=== PATIENT | male | born 1945 | race Caucasian/White ===

== ENCOUNTER 2016-11-24 09:16 | Observation (INO) | payer BC ==
[~2016-11-24] VITALS: Ht 185.4 cm; Wt 83.3 kg
[2016-11-24] VITALS (10 sets, daily range): BP systolic 103–124; BP diastolic 69–75; PULSE 56–72; TEMP 36.3–36.9; O2SAT 95–98; Ht 185.4 cm; Wt 83.3 kg
[~2016-11-24 09:16] MED LIST: ASPEC81; CEFAZOLIN 1000MG/55 ML D5W IV SCH; DRV100; IBUP600T44 PO
[2016-11-24] MEDS ORDERED: BUPIVACAINE 0.5 % 5 MG/1 ML MPF 30ML VIAL ONE (10:01)
[2016-11-24] MEDS ORDERED: BACITRACIN 50000 UNIT VIAL ONE (10:01)
[2016-11-24] MEDS ORDERED: LIDOCAINE HCL 1% 20 ML VIAL ONE (10:01)
[2016-11-24] MEDS ORDERED: OMEG10007 PO (10:03)
[2016-11-24] MEDS ORDERED: GLUC1TAB44 PO (10:03)
[2016-11-24] MEDS ORDERED: RANO500T PO (10:03)
[2016-11-24] MEDS ORDERED: NTRGSL/4 UT (10:03)
[2016-11-24] MEDS ORDERED: AMLO2.5T PO (10:03)
[2016-11-24] MEDS ORDERED: MULT-506 PO (10:03)
[2016-11-24] MEDS ORDERED: TADA10TA PO (10:03)
[2016-11-24] MEDS ORDERED: KEFZOL SPECIAL PROCEDURE STOCK 1 GM ADDVIAL IV ONE (10:06)
--- NOTE | 2016-11-24 10:13 | History & Physical Bridge Note ---
H&P Re-Evaluation Bridge Note: I have examined the patient, reviewed the History & Physical and in the interval since the performance of the History & Physical I have noted the following changes of clinical significance: No changes noted
--- NOTE | 2016-11-24 10:13 | Procedure Note ---
Pre-Mod Sedation Assessment General Date of Moderate Sedation: Nov 24, 2016. Vital Signs: Vital Signs Past 12 Hours Date Time Temp Pulse Resp B/P Pulse Ox O2 Delivery O2 Flow Rate FiO2 11/24/16 09:56 36.6 65 16 123/73 98 Room Air Review Cardiovascular: + bradycardia Abdomen: soft Lungs: lungs clear Airway Class: II Pre-Sedation Airway Assessment Oral Cavity: Dentures Short Thick Neck: No Hx of Sleep Apnea: No Smoking Status: Former Smoker Mallampati Classification: Class II ASA Classification: Class II Procedure Planning Contraindications-for Mod Sed: None Yes Notes The planned sedation has been discussed with the patient and consent obtained. I have identified the patient, determined the appropriateness of sedation and have assessed the patient immediately prior to the procedure. All medicine(s) and interventions are by my order.
[2016-11-24] MEDS ORDERED: MIDAZOLAM HCL 5 MG/ML 1 ML VIAL ONE (10:39)
[2016-11-24] MEDS ORDERED: FENTANYL CITRATE INJ 50 MCG/1 ML 2 ML VIAL ONE (10:40)
--- NOTE | 2016-11-24 12:03 | Procedure Note ---
Post-Mod Sedation Assessment General Date of Moderate Sedation Nov 24, 2016. Vital Signs: Vital Signs Past 12 Hours Date Time Temp Pulse Resp B/P Pulse Ox O2 Delivery O2 Flow Rate FiO2 11/24/16 11:50 59 18 123/84 100 Nasal Cannula 3 11/24/16 09:56 36.6 65 16 123/73 98 Room Air Review - Discharge Criteria Vital Signs Stable: Yes Alert/Oriented/Conversant: Yes Returned to Baseline Mental St: Yes Nausea Absent/Minimal: Yes Pain/Discomfort/Absent/Minimal: Yes Normal/Baseline Respirations: Yes Active Bleeding?: No Pt Received D/C Instructions: N/A Prescriptions Given: None Specific Proced. D/C Criteria Distal Pulses Present (Cardiac: N/A Groin site assessed-Card Cath: N/A Voided Prior To Discharge: N/A Discharged Patients Adult Escort/Transportation: N/A
--- NOTE | 2016-11-24 12:04 | [facility] Post Operative Brief Note ---
Immediate Operative Summary Operative Date Nov 24, 2016. Pre-Operative Diagnosis snd Post-Operative Diagnosis same Procedure(s) Performed dual chamber rate responsive ppm with peripheral venogram Surgeon haylie arellano Truck Jumper Surgeon(s) none Estimated Blood Loss <10cc Findings none Fluids (cc crystalloids) 200cc Specimens none Drains none Anesthesia 5mg versed and 100mcg fentanyl Complication(s) None Disposition PCU
--- NOTE | 2016-11-24 12:09 | Discharge Instructions ---
Discharge Instructions Admission Reason for Admission: Sinus Node Dysfunction Discharge Discharge Diagnosis / Problem: sinus node dysfunction Discharge Goals Goal(s): Improve function Activity Recommendations Activity Limitations: as noted below (do not lift your left elbow over your left chest for 1 week; do not play racketball for at least 2 weeks) Lifting Limitations: no more than 10 pounds (with the left arm for 2 weeks) Shower/Bathe: tomorrow Driving or Machine Use: resume 1 day after discharge . Current Hospital Diet Patient's current hospital diet: AHA Diet (Heart Healthy) Discharge Diet Recommended Diet: AHA Diet (Heart Healthy) Procedures Procedures Performed: dual chamber rate responsive ppm with peripheral venogram Pending Studies Studies pending at discharge: no Medical Emergencies . Who to Call and When: Medical Emergencies: If at any time you feel your situation is an emergency, please call 911 immediately. . Non-Emergent Contact Non-Emergency issues call your: Sample Hand . . "Provider Documentation" section prepared by Nell Brian. VTE Core Measure Inpt VTE Proph given/why not?: Treatment not indicated
--- NOTE | 2016-11-24 12:13 | Discharge Summary ---
Discharge Summary Admission Date: 11/24/2016 Discharge Date: Nov 25, 2016 Discharge Disposition: Home Principal Diagnosis: 1. 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 Mobitz Type I pAF s/p PVI 02/2008 CAD s/p CABGx4 05/2006 Statin intolerance Vasovagal Syncope Procedures: dual chamber rate responsive permanent pacemaker with peripheral venogram Medication Reconciliation Continued Medications: Amlodipine (Norvasc) 2.5 Mg Tab 2.5 MG PO DAILY, TAB Aspirin Enteric Coated (Ecotrin Or Generic *) 81 Mg Ectab Fish Oil ([place]-3) 1 Ea Cap 1 CAP PO BID, CAP Xjsphjhwnwn-Waqesfdleee-Vnisug (Glucosamine Chondroitin J) 1 Tab Tab 1 TAB PO BID Ibuprofen (Motrin) 600 Mg Tab 800 MG PO PRN PRN for Pain Multivitamin (Multivitamin) Tab 1 TAB PO DAILY, TAB Nitroglycerin (Nitrostat) 0.4 Mg Tab 0.4 MG UT PRN, BTL Ranolazine (Ranexa) 500 Mg Tab 1 TAB PO BID for 30 Days, #60 TAB 3 Refills Tadalafil (Cialis) 10 Mg Tab 20 MG PO UD, TAB Admission Information Physical Exam (per Admitting): aaox3, NAD No JVD, suppler Bradycardia, Nrl S1/S2, no murmur CTA b/l no w/r/r soft nt/nd no edema b/l no focal deficits Hospital Course Pt admitted for elective permanent pacemaker due to sinus node dysfunction. Pt underwent procedure without any complications and monitored overnight. Discharged home the following day. Total time spent on discharge = This includes examination of the patient, discharge planning, medication reconciliation, and communication with other providers. Discharge Instructions ACTIVITY RECOMMENDATIONS: * Do not raise affected arm over head for 4 weeks. SPECIAL CARE INSTRUCTIONS: * If bleeding occurs, apply direct pressure to area for 5 minutes. * Call your doctor if you have severe pain, fever, drainage or bleeding at site. * Keep dry for 48 hours * Keep any scheduled doctor's appointment. * Implant Card - hand held device with website information given. SKIN IRRITATION: * You may experience some redness and/or swelling in the area where radiation was administered. If any skin irritation occurs, please contact your family physician. FOLLOW UP VISIT: Keep any scheduled doctor appointments.
[2016-11-24] MEDS ORDERED: NITROGLYCERIN 0.4 MG SL PER TAB CHARGE UT PRN (12:15)
[2016-11-24] MEDS ORDERED: NON-FORMULARY MEDICATION (Tadalafil (Cialis) 20 MG) PO SCH (12:15)
[2016-11-24] MEDS ORDERED: OXYCODONE/ACETAMINOPHEN 5-325 TAB PO PRN (12:15)
--- NOTE | 2016-11-24 13:40 | OPERATIVE REPORT ---
DATE OF OPERATION: 11/24/2016 PREOPERATIVE DIAGNOSIS: Sinus node dysfunction. POSTOPERATIVE DIAGNOSIS: Same. PROCEDURE: Dual chamber rate responsive permanent pacemaker under fluoroscopic guidance with a peripheral venogram. SURGEON: Dr. Nell Brian. FREELANCE COURT STENOGRAPHER: None. ANESTHESIA: Monitored conscious sedation, a total of 5 mg of Versed, 100 mcg of Fentanyl, start time 10:56, end time 11:50. COMPLICATIONS: None. CONDITION: Stable. URINE OUTPUT: Not applicable. SPECIMENS: None. BLOOD LOSS: Less than 10 mL. FINDINGS: None. IV FLUIDS: 200 mL. IV CONTRAST: 10 mL. HISTORY OF PRESENT ILLNESS: This is a 71-year-old gentleman who has a past medical history of sinus node dysfunction, transient complete heart block, second-degree AV block, Mobitz type 1, paroxysmal atrial fibrillation status post PVI ablation in February of 2008, no longer on Coumadin, coronary artery disease, status post CABG x4 in May 2006, statin intolerance, vasovagal syncope. Due to his sinus node dysfunction and becoming more symptomatic he was recommended a pacemaker. CONSENT: Consent was obtained prior to the patient going into the electrophysiology lab. The patient was informed the risks, benefits, alternatives to the procedure. Risks include but not limited to sudden cardiac , cardiac arrhythmias, cerebrovascular accident, myocardial infarction, injury to the blood vessels, chamber of the heart and lungs, bleeding and infection. The patient understood these risks and agreed to the procedure as planned. Informed consent was obtained. DESCRIPTION OF THE PROCEDURE: The patient was brought into the electrophysiology lab in a fasting state. He was connected to continuous cardiac monitoring. A timeout was performed to ensure patient's identity and procedure correctly. The patient was prepped and draped over the left infraclavicular space in normal surgical standard fashion. The patient received prophylactic antibiotics prior to incision. Monitored conscious sedation was given throughout the procedure for patient's comfort level. [place] precautions were maintained throughout the procedure. Lidocaine 1% 20 mL, bupivacaine mixture in the left deltopectoral groove. Incision was made in left deltopectoral groove. Blunt dissection was performed down to identify the cephalic vein; however, none could be nicely identified so we went to a peripheral venogram. We gave 10 mL of IV contrast diluted in 10 mL of saline followed by 20 mL flush. Axillary vein was identified. There was a cephalic vein too but however I could not really find it, so I opted to stick the axillary vein. Axillary venous access was obtained. A guidewire was inserted without any resistance. An 8-Jamaican sheath was inserted over the guidewire without any resistance. The dilator was removed and a second guidewire was inserted through the 8-Jamaican sheath to allow for retained venous access. The 8-Jamaican sheath was removed, flushed and dilator reinserted over it and then the 8-Jamaican sheath was reinserted over one of the guidewires without any resistance. The guidewire and dilator were removed. Right ventricular lead was advanced into the right ventricle and positioned into the right ventricular apex under fluoroscopic guidance. There was adequate pacing and sensing thresholds and no diaphragmatic stimulation with high output pacing. The 8-Jamaican sheath was peeled away and lead was fixated to pectoralis muscle using 0 silk suture. A second 8-Jamaican sheath was advanced over the retained guidewire without any resistance. The guidewire and dilator were removed. The right atrial lead was advanced into the right atrium and positioned into right atrial appendage under fluoroscopic guidance. There was adequate pacing and sensing thresholds and no diaphragmatic stimulation with high output pacing. The 8-Jamaican sheath was peeled away and lead was fixated to the pectoralis muscle using 0 silk suture. Using blunt dissection over the pectoralis muscle within the fascia. A pacemaker generator pocket was created. The pocket was flushed with copious amounts of bacitracin saline wash and inspected for hemostasis. The pulse generator was then attached to the leads making sure that the pins were in appropriate position, passed the set screws and the set screws were all tightened. The pulse generator was then placed in the pocket making sure that the leads were lying flat beneath the device. A stay stitch using 0 silk suture was used to secure the device to the pectoralis muscle. The incision was closed in a 3-layer fashion using a 2-0 Vicryl interrupted suture followed by a 3-0 Vicryl suture followed by a 4-0 Monocryl running stitch and Dermabond was applied. EQUIPMENT: 1. Pulse generator is a MedAltatecha MRI SureScan A2DR01, serial #[id number]. 2. Right atrial lead Medtronic 5076-52 cm, serial #[id number]. 3. Right ventricular lead, Medtronic 5076-58 cm, serial #[id number]. INTRAOPERATIVE TESTIN. P-wave sensing 1.9 millivolts, impedance 588 ohms, threshold 0.6 volts at 1 milliamp. 2. Right ventricular lead: R-wave sensing 5.2 millivolt, impedance 884 ohms, threshold 0.4 volts at 0.4 milliamps. FINAL MEASUREMENTS THROUGH THE DEVICE: 1. Right atrial lead: P-wave 2.5 millivolts, impedance 456 ohms, threshold 0.5 volts at 0.4 milliseconds. 2. Right ventricular lead: R-wave 10.1 millivolts, impedance 589 ohms, threshold 0.5 volts at 0.4 milliseconds. FINAL PARAMETERS: MVP-R 60/140. Right atrial amplitude 3.5 volts, pulse width 0.4 milliseconds, sensitivity 0.3 millivolts. Right ventricular amplitude 3.5 volts, pulse width 0.4 milliseconds, sensitivity 0.9 millivolts. IMPRESSION: Successful implantation of a dual chamber rate responsive permanent pacemaker under fluoroscopic guidance along with peripheral venogram secondary to sinus node dysfunction. PLAN: Monitor patient overnight, 12-lead ECG, chest x-ray. He is not allowed to lift his left elbow over left shoulder for 1 month, no lifting more than 10 pounds with the left arm for 2 weeks. He should not play racquetball for 3 week and he can shower in 2 days. He should follow up in our [facility] device clinic in 7-10 days for device and wound check. I attest to the content of the Intraoperative Record and any orders documented therein. Any exceptio ns are noted below.
[2016-11-24] MEDS ORDERED: IV FLUIDS COMPLETED PRN (14:15)
[2016-11-24] MEDS: RANOLAZINE 500 MG ER TAB PO SCH (20:49)
[2016-11-24] MEDS: ACETAMINOPHEN 325 MG TAB PO PRN (20:49)
[2016-11-24] MEDS ORDERED: [UNRECOGNIZED DRUG - OTHER] PO SCH (21:00)
[2016-11-24] MEDS ORDERED: PNEUMOCOCCAL ADMINISTRATION CHARGE ONE (21:00)
[2016-11-24] MEDS ORDERED: PNEUMOCOCCAL POLYSACCHARIDES 25 MCG/0.5 ML VIAL/SYR IM. ONE (21:00)
[2016-11-25] VITALS (7 sets, daily range): BP systolic 114–125; BP diastolic 69–76; PULSE 59–68; TEMP 36.5–37.1; O2SAT 94–95
[2016-11-25] MEDS: ACETAMINOPHEN 325 MG TAB PO PRN (04:34)
--- NOTE | 2016-11-25 07:21 | DIAGNOSTIC IMAGING REPORT ---
CHEST 2 VIEWS ROUTINE CLINICAL HISTORY: Pacemaker insertion COMPARISON STUDY: Chest radiograph and chest CT June 15, 2006 FINDINGS: There has been placement of a dual lead left subclavian pacemaker. Lead tip projects over the right atrial appendage and right ventricle. There are median sternotomy wires and clips from bypass grafting. There is no evidence of pulmonary edema. Mild cardiomegaly is present. No pneumothorax or pleural effusion is present. IMPRESSION: No pneumothorax following placement of a dual lead left subclavian pacemaker. Electronically signed by: Bhavin Roe M.D. 11/25/2016 7:20 AM Dictated Date/Time: 11/25/2016 7:19 AM
[2016-11-25] MEDS: RANOLAZINE 500 MG ER TAB PO SCH (08:22)
--- NOTE | 2016-11-25 08:36 | Cardiology Follow-Up ---
Subjective Subjective Date of Service: Nov 25, 2016. Pt evaluation today including: conversation w/ patient, physical exam, chart review, lab review, review of studies Pain: minimal discomfort at incision site Review of Systems Constitutional: No fatigue, No fever, No weakness Respiratory: No shortness of breath, No wheezing Cardiac: No chest pain, No edema, No palpitations Abdomen: No diarrhea, No nausea, No vomiting Endo: No fatigue Objective Vital Signs Last Vital Signs Documentation Date Time Temp Pulse Resp B/P Pulse Ox O2 Delivery O2 Flow Rate FiO2 11/25/16 07:45 36.8 67 18 114/69 95 Room Air 11/24/16 11:50 3 Physical Exam: General Appearance: WD/WN, no apparent distress Eyes: bilateral eyes EOMI, bilateral eyes PERRL Neck: supple, no JVD Respiratory/Chest: lungs clear, normal breath sounds Cardiovascular: regular rate, rhythm, no edema, no JVD, + systolic murmur Abdomen: soft Extremities: no pedal edema Neurologic/Psychiatric: alert, oriented x 3 Skin: normal color (left pectoral incision intact, no hematoma, mild ecchymosis ), warm/dry Assessment and Plan Impression: 1. SND 2. Transient CHB 3. 2nd degree AV block Mobitz Type I 4. pAF s/p PVI 02/2008 5. CAD s/p CABGx4 05/2006 6. Statin intolerance 7. Vasovagal Syncope Plan: -Ok for discharge today -Continue home medications -Pt not allowed to lift the left elbow over the left shoulder for 1 month or lift more than 10 pounds with left arm for 2 weeks; or play racquetball for 3 weeks -can shower tomorrow -f/u in our [facility] device clinic in 7-10 days Discharge planning: home Medications: Medications Administered Medications (Trade) Dose Ordered Sig/Lissette Route Start Time Stop Time Status Last Admin Dose Admin Cefazolin Sodium (Kefzol Iv) 2 gm STK-MED ONCE IV 11/24/16 10:06 11/24/16 10:07 DC 11/24/16 10:06 2 GM Midazolam HCl (Versed Inj) 5 mg STK-MED ONCE .ROUTE 11/24/16 10:39 11/24/16 10:41 DC 11/24/16 10:39 5 MG Fentanyl Citrate (Fentanyl Inj) 100 mcg STK-MED ONCE .ROUTE 11/24/16 10:40 11/24/16 10:41 DC 11/24/16 10:40 100 MCG Acetaminophen (Tylenol Tab) 650 mg Q4H PRN PO 11/24/16 12:15 12/24/16 12:14 11/25/16 04:34 650 MG Amlodipine Besylate (Norvasc Tab) 2.5 mg DAILY PO 11/25/16 09:00 12/25/16 08:59 11/25/16 08:22 2.5 MG Aspirin (Ecotrin Tab) 81 mg DAILY PO 11/25/16 09:00 12/25/16 08:59 11/25/16 08:21 81 MG Multivitamins (Multivitamin Tab) 1 tab DAILY PO 11/25/16 09:00 12/25/16 08:59 11/25/16 08:21 1 TAB Ranolazine (Ranexa ER Tab) 500 mg BID PO 11/24/16 21:00 12/24/16 20:59 11/25/16 08:22 500 MG Lab Results: Telemetry: occasional AP otherwise SR and RBBB ECG: AP with RBBB CXR: No PTX leads in position Pacemaker Interrogation Today: Stable lead testing and wnl since implant
[2016-11-25] MEDS ORDERED: ASPIRIN 81 MG ECTAB PO SCH (09:00)
[2016-11-25] MEDS ORDERED: AMLODIPINE BESYLATE 5 MG TAB PO SCH (09:00)
[2016-11-25] MEDS ORDERED: MULTIVITAMIN TAB PO SCH (09:00)
== END 2016-11-25 09:25 | disposition home or self-care (01) ==
LOC: C.CATH 09:16 → C.2E 12:07
PROVIDERS: ADMIT Internal Medicine; ATTEND Internal Medicine
DX: I49.5 Sick sinus syndrome (principal); I44.2 Atrioventricular block, complete; I25.10 Atherosclerotic heart disease of native coronary artery without angina pectoris; N18.3 Chronic kidney disease, stage 3 (moderate); N40.1 Benign prostatic hyperplasia with lower urinary tract symptoms; N13.8 Other obstructive and reflux uropathy; Z95.1 Presence of aortocoronary bypass graft

== ENCOUNTER 2021-01-05 09:40 | Inpatient (IN) ==
[2021-01-05] MEDS ORDERED: CEFEPIME 2,000 MG in SYRINGE 0 ML IV STA (10:03)
[2021-01-05] MEDS ORDERED: SODIUM CHLORIDE 0.9% 1000ML 2,000 ML IV ONE (10:04)
--- NOTE | 2021-01-05 10:07 | Emergency Department Note ---
Impression & Plan Complicated UTI (urinary tract infection), Leukopenia, Acidosis, lactic, Sepsis ED Provider Note NAME: TAMIKO PABON AGE: 75 SEX: M : 1945 ARRIVES VIA: Walk-In INFORMANT: Patient ED PROVIDER(S): Maciej Lin DO CHIEF COMPLAINT: Shaking chills HPI: Patient is a 75-year-old male who recently underwent a prostate biopsy performed in [place] on Tuesday. He was placed on 4 days worth of antibiotics and believes it was Cipro. Burning with urination and frequency started about 3 days ago. This morning he woke up and has had uncontrollable body shakes. He denies any headache or change in vision. No chest pain or shortness of breath. Denies any recent trauma. Denies any cough or runny nose. No loss of taste or smell. No other exacerbating or remitting factors. Pain in his lower pelvis is a 6 out of 10 and constant. ROS: See above HPI for pertinent positives & negatives. A total of 10 systems reviewed and were otherwise negative. PAST MEDICAL HISTORY:See Below PAST SURGICAL HISTORY:See Below FAMILY HISTORY:See Below SOCIAL HISTORY:See Below HOME MEDICATIONS:See Below ALLERGIES:See Below VITALS:See Below PHYSICAL EXAMINATION: GENERAL: Sitting up in bed, alert, ill-appearing with uncontrollable shaking of his upper and lower body EYE EXAM: normal conjunctiva. PERRL and EOM's grossly intact. OROPHARYNX: no exudate, no erythema, lips, buccal mucosa, and tongue normal and mucous membranes are moist NECK: supple, no nuchal rigidity, no adenopathy, non-tender LUNGS: Clear to auscultation. Normal chest wall mechanics HEART: Tachycardic, S1 normal and S2 normal ABDOMEN: abdomen soft, non-tender, normo-active bowel sounds, no masses, no rebound or guarding. BACK: Back is symmetrical on inspection and there is no deformity, no midline tenderness, no CVA tenderness. SKIN: no rashes and no bruising UPPER EXTREMITIES: upper extremities are grossly normal. LOWER EXTREMITIES: No pitting edema. NEURO EXAM: Normal sensorium, cranial nerves II-XII grossly intact, normal speech, no gross weakness of arms, no gross weakness of legs. MEDICAL DECISION MAKING: Patient is a 75-year-old male status post prostate biopsy who presents the ER for 3 days worth of dysuria and now having shaking chills. Took Motrin prior to arrival. Tachycardic upon arrival. Labs show mild leukopenia at 4000. No significant anemia. INR unremarkable. BMP with slightly elevated glucose at 149. Lactate was elevated at 3.6. LFTs bilirubin troponin was unremarkable. UA does suggest UTI. Covid was negative. Patient was given 2 g IV cefepime IV fluids and CT abdomen pelvis was updated. Discussed with hospitalist for further evaluation patient was admitted for further work-up. Triage Nursing notes reviewed. Limited review of prior medical records performed Vital Signs: reviewed and remarkable for HTN and tachy Differential diagnosis: Differential diagnosis includes etiologies such as sepsis, UTI, pneumonia, metabolic, electrolyte abnormalities, cardiac sources, intracerebral event, toxicologic, neurological, as well as others were entertained. ER treatment provided: See below Diagnostics interpreted by me: Cardiac Monitoring: An order was placed for continuous cardiac monitoring. The monitor shows a rate of 88 with sinus rhythm. Laboratory studies: As stated above and show below. 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 SANTAMARIA Surgical History H/O cardiac radiofrequency ablation 2008 History of appendectomy History of cardiac cath 2006 History of colonoscopy History of coronary artery bypass graft Dr Sumner, Off pump coronary artery bypass grafting x4 using INFANTE to LAD, reverse saphenous vein graft to diagonal, and sequential reverse saphenous vein graft to ramus intermedius and obtuse marginal; endoscopic vein harvesting 4 VESSELS AT [employer] [facility] [place] 2006 History of herniorrhaphy X 3 REPAIRS (INGUINAL AREAS) History of tonsillectomy History of tooth extraction Hx of vasectomy S/P LASIK surgery of both eyes Family History Father , 77 Myocardial infarction Coronary heart disease Stroke Mother Myocardial infarction Coronary heart disease Social History (Updated 01/05/21 @ 14:26 by Lolis Reyes PA-C) Smoking Status: Former smoker Tobacco Type: Cigarettes packs per day: 1; Years Smoked: 10; Smoking End Date: 1967; Second Hand Exposure: No; Do You Dip or Chew Tobacco: No; Tobacco Cessation Education Requested by Patient: No Hx Alcohol Use: No Hx Substance Use: No Preferred Language: Singaporean Communication Ability: Effective Mine Captain Required: No Beliefs That Will Affect Care: None Current Living Situation: Family current occupational status: employed 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 Other Information That Helps Us Care for You: No Feels Safe at Home: Yes Safety Concerns: Feels Safe At This Time Assistive Devices: Denture - Upper, Denture - Lower and Glasses Allergies Allergies Allergy/AdvReac Type Severity Reaction Status Date / Time Wotvvsz-Mun-Egg Reductase AdvReac Intermediate MUSCLE Verified 01/05/21 11:29 Inhibitor ACHES Home Meds Home Medications Medication Instructions Recorded Confirmed Glucosamine Chondroitin 1 cap PO BID 10/30/19 01/05/21 Multivitamin 50 Plus 1 tab PO QAM 10/30/19 01/05/21 metoprolol succinate 75 mg PO QAM 10/30/19 01/05/21 ranolazine [Ranexa] 500 mg PO BID 10/30/19 01/05/21 Prostagenix 3 tab PO DAILY 01/05/21 01/05/21 aspirin 81 mg PO DAILY 01/05/21 01/05/21 ibuprofen 200 mg PO Q6H PRN 01/05/21 01/05/21 Results & Data (ED) Vital Signs Vital Signs - 24 hr 01/05/21 09:50 01/05/21 10:03 01/05/21 10:46 Temperature 36.9 C Temperature Source Temporal Artery Scan Pulse Rate 100 H Respiratory Rate 18 Respiratory Effort / Characteristics Non-Labored Spontaneous Non-Labored Respiratory Depth Normal Blood Pressure 148/83 H Blood Pressure Mean 104 Blood Pressure Position Sitting Pulse Oximetry 96 Oxygen Delivery Method Room Air Room Air Sepsis Recent Fever Within 48 Hours Yes Sepsis New/Unexplained Change in Mental Status No Sepsis Action Taken by Nursing No Action Required 01/05/21 10:54 01/05/21 11:00 01/05/21 11:30 Temperature Temperature Source Pulse Rate 93 H 92 H 88 Respiratory Rate Respiratory Effort / Characteristics Respiratory Depth Blood Pressure Blood Pressure Mean Blood Pressure Position Pulse Oximetry Oxygen Delivery Method Sepsis Recent Fever Within 48 Hours Sepsis New/Unexplained Change in Mental Status Sepsis Action Taken by Nursing 01/05/21 11:51 01/05/21 12:12 01/05/21 12:30 Temperature Temperature Source Pulse Rate 89 90 91 H Respiratory Rate 20 Respiratory Effort / Characteristics Respiratory Depth Blood Pressure 103/53 L 108/66 Blood Pressure Mean 69 80 Blood Pressure Position Pulse Oximetry Oxygen Delivery Method Sepsis Recent Fever Within 48 Hours Sepsis New/Unexplained Change in Mental Status Sepsis Action Taken by Nursing Laboratory Data Result diagrams: 01/05/21 10:40 01/05/21 10:40 Lab Results 01/05/21 01/05/21 01/05/21 Range/Units 10:40 10:40 10:40 WBC 4.04 L (4.8-10.8) K/uL RBC 4.26 L (4.7-6.1) M/uL Hgb 13.7 L (14.0-18.0) g/dL POC Hgb (14.0-18.0) g/dl Hct 39.0 L (42-52) % POC Hct (42-52) % MCV 91.5 (80-100) fL MCH 32.2 (25-34) pg MCHC 35.1 (32-36) g/dL RDW Std Deviation 44.1 (36.4-46.3) fL RDW Coeff of Valentín 13.2 (11.5-14.5) % Plt Count 176 (130-400) K/uL MPV 9.0 (7.4-10.4) fL Immature Gran % (Auto) 0.7 % Neut % (Auto) 88.3 % Lymph % (Auto) 9.9 % Williams % (Auto) 0.7 % Eos % (Auto) 0.2 % Baso % (Auto) 0.2 % Neut # (Auto) 3.56 (1.4-6.5) K/uL Lymph # (Auto) 0.40 L (1.2-3.4) K/uL Williams # (Auto) 0.03 L (0.11-0.59) K/uL Eos # (Auto) 0.01 (0-0.5) K/uL Baso # (Auto) 0.01 (0-0.2) K/uL Immature Gran # (Auto) 0.03 H (0.00-0.02) K/uL PT 10.4 (9.0-12.0) Seconds INR 1.0 (0.9-1.1) APTT 23.3 (21.0-31.0) Seconds PTT Ratio 0.9 POC Sodium (135-144) mmol/L Sodium 137 (136-145) mmol/L POC Potassium (3.3-5.0) mmol/L Potassium 3.9 (3.5-5.1) mmol/L POC Chloride (101-112) mmol/L Chloride 105 (98-107) mmol/L Carbon Dioxide 23 (21-32) mmol/L POC Total CO2 (24-31) mmol/L Anion Gap 9.0 (3-11) POC Anion Gap (16-25) mmol/L POC BUN (7-18) mg/dl BUN 16 (7-18) mg/dl Creatinine 1.33 (0.6-1.4) mg/dl POC Creatinine (0.6-1.3) mg/dl Est Cr Clr Drug Dosing 54.3 ml/min Est GFR ( Amer) 61.0 Est GFR (Non-Af Amer) 52.7 BUN/Creatinine Ratio 11.8 (10-20) Glucose 149 H (70-99) mg/dl POC Glucose (other) (70-99) mg/dl Lactate (0.4-2.0) mmol/L Calcium 8.6 (8.5-10.1) mg/dl POC Ioniz Calcium Jarod (1.12-1.32) mmol/l Magnesium 1.7 L (1.8-2.4) mg/dl Total Bilirubin 0.7 (0.2-1) mg/dl AST 23 (15-37) U/L ALT 23 (12-78) U/L Alkaline Phosphatase 83 (45-117) U/L Troponin I < 0.015 (0-0.045) ng/ml Total Protein 7.9 (6.4-8.2) gm/dl Albumin 3.5 (3.4-5.0) gm/dl Globulin 4.4 H (2.5-4.0) gm/dl Albumin/Globulin Ratio 0.8 L (0.9-2) Procalcitonin (0-0.5) ng/ml Urine Color Urine Appearance (Clear) Urine pH (4.5-7.5) Ur Specific [place] (1.000-1.030) Urine Protein (Negative) Urine Glucose (UA) (Negative) Urine Ketones (Negative) Urine Blood (Negative) Urine Nitrite (Negative) Urine Bilirubin (Negative) Urine Urobilinogen (Negative) Ur Leukocyte Esterase (Negative) Urine WBC (Auto) (0-5) /hpf Urine RBC (Auto) (0-4) /hpf U Hyaline Cast (Auto) (0-5) /lpf U Epithel Cells (Auto) (0-5) /lpf Urine Bacteria (Auto) (Negative) COVID-19 Eval Order SARS-CoV-2 (PCR) (Negative) Influenza Type A (PCR) (Neg) Influenza Type B (PCR) (Neg) RSV (RT-PCR) (Neg) 01/05/21 01/05/21 01/05/21 Range/Units 10:40 10:40 11:06 WBC (4.8-10.8) K/uL RBC (4.7-6.1) M/uL Hgb (14.0-18.0) g/dL POC Hgb (14.0-18.0) g/dl Hct (42-52) % POC Hct (42-52) % MCV (80-100) fL MCH (25-34) pg MCHC (32-36) g/dL RDW Std Deviation (36.4-46.3) fL RDW Coeff of Valentín (11.5-14.5) % Plt Count (130-400) K/uL MPV (7.4-10.4) fL Immature Gran % (Auto) % Neut % (Auto) % Lymph % (Auto) % Williams % (Auto) % Eos % (Auto) % Baso % (Auto) % Neut # (Auto) (1.4-6.5) K/uL Lymph # (Auto) (1.2-3.4) K/uL Williams # (Auto) (0.11-0.59) K/uL Eos # (Auto) (0-0.5) K/uL Baso # (Auto) (0-0.2) K/uL Immature Gran # (Auto) (0.00-0.02) K/uL PT (9.0-12.0) Seconds INR (0.9-1.1) APTT (21.0-31.0) Seconds PTT Ratio POC Sodium (135-144) mmol/L Sodium (136-145) mmol/L POC Potassium (3.3-5.0) mmol/L Potassium (3.5-5.1) mmol/L POC Chloride (101-112) mmol/L Chloride (98-107) mmol/L Carbon Dioxide (21-32) mmol/L POC Total CO2 (24-31) mmol/L Anion Gap (3-11) POC Anion Gap (16-25) mmol/L POC BUN (7-18) mg/dl BUN (7-18) mg/dl Creatinine (0.6-1.4) mg/dl POC Creatinine (0.6-1.3) mg/dl Est Cr Clr Drug Dosing ml/min Est GFR ( Amer) Est GFR (Non-Af Amer) BUN/Creatinine Ratio (10-20) Glucose (70-99) mg/dl POC Glucose (other) (70-99) mg/dl Lactate 3.6 H* (0.4-2.0) mmol/L Calcium (8.5-10.1) mg/dl POC Ioniz Calcium Jarod (1.12-1.32) mmol/l Magnesium (1.8-2.4) mg/dl Total Bilirubin (0.2-1) mg/dl AST (15-37) U/L ALT (12-78) U/L Alkaline Phosphatase (45-117) U/L Troponin I (0-0.045) ng/ml Total Protein (6.4-8.2) gm/dl Albumin (3.4-5.0) gm/dl Globulin (2.5-4.0) gm/dl Albumin/Globulin Ratio (0.9-2) Procalcitonin 0.41 (0-0.5) ng/ml Urine Color Dark Yellow Urine Appearance Turbid A (Clear) Urine pH 5.5 (4.5-7.5) Ur Specific [place] 1.024 (1.000-1.030) Urine Protein 2+ H (Negative) Urine Glucose (UA) Negative (Negative) Urine Ketones Trace H (Negative) Urine Blood 3+ H (Negative) Urine Nitrite Positive A (Negative) Urine Bilirubin Negative (Negative) Urine Urobilinogen Negative (Negative) Ur Leukocyte Esterase 3+ H (Negative) Urine WBC (Auto) >30 H (0-5) /hpf Urine RBC (Auto) >30 H (0-4) /hpf U Hyaline Cast (Auto) 1-5 (0-5) /lpf U Epithel Cells (Auto) 0-5 (0-5) /lpf Urine Bacteria (Auto) 4+ H (Negative) COVID-19 Eval Order SARS-CoV-2 (PCR) (Negative) Influenza Type A (PCR) (Neg) Influenza Type B (PCR) (Neg) RSV (RT-PCR) (Neg) 01/05/21 01/05/21 01/05/21 Range/Units 11:14 11:55 11:55 WBC (4.8-10.8) K/uL RBC (4.7-6.1) M/uL Hgb (14.0-18.0) g/dL POC Hgb 11.6 L (14.0-18.0) g/dl Hct (42-52) % POC Hct 34 L (42-52) % MCV (80-100) fL MCH (25-34) pg MCHC (32-36) g/dL RDW Std Deviation (36.4-46.3) fL RDW Coeff of Valentín (11.5-14.5) % Plt Count (130-400) K/uL MPV (7.4-10.4) fL Immature Gran % (Auto) % Neut % (Auto) % Lymph % (Auto) % Williams % (Auto) % Eos % (Auto) % Baso % (Auto) % Neut # (Auto) (1.4-6.5) K/uL Lymph # (Auto) (1.2-3.4) K/uL Williams # (Auto) (0.11-0.59) K/uL Eos # (Auto) (0-0.5) K/uL Baso # (Auto) (0-0.2) K/uL Immature Gran # (Auto) (0.00-0.02) K/uL PT (9.0-12.0) Seconds INR (0.9-1.1) APTT (21.0-31.0) Seconds PTT Ratio POC Sodium 138 (135-144) mmol/L Sodium (136-145) mmol/L POC Potassium 3.7 (3.3-5.0) mmol/L Potassium (3.5-5.1) mmol/L POC Chloride 102 (101-112) mmol/L Chloride (98-107) mmol/L Carbon Dioxide (21-32) mmol/L POC Total CO2 24 (24-31) mmol/L Anion Gap (3-11) POC Anion Gap 16.0 (16-25) mmol/L POC BUN 16 (7-18) mg/dl BUN (7-18) mg/dl Creatinine (0.6-1.4) mg/dl POC Creatinine 1.1 (0.6-1.3) mg/dl Est Cr Clr Drug Dosing ml/min Est GFR ( Amer) Est GFR (Non-Af Amer) BUN/Creatinine Ratio (10-20) Glucose (70-99) mg/dl POC Glucose (other) 121 H (70-99) mg/dl Lactate (0.4-2.0) mmol/L Calcium (8.5-10.1) mg/dl POC Ioniz Calcium Jarod 1.12 (1.12-1.32) mmol/l Magnesium (1.8-2.4) mg/dl Total Bilirubin (0.2-1) mg/dl AST (15-37) U/L ALT (12-78) U/L Alkaline Phosphatase (45-117) U/L Troponin I (0-0.045) ng/ml Total Protein (6.4-8.2) gm/dl Albumin (3.4-5.0) gm/dl Globulin (2.5-4.0) gm/dl Albumin/Globulin Ratio (0.9-2) Procalcitonin (0-0.5) ng/ml Urine Color Urine Appearance (Clear) Urine pH (4.5-7.5) Ur Specific [place] (1.000-1.030) Urine Protein (Negative) Urine Glucose (UA) (Negative) Urine Ketones (Negative) Urine Blood (Negative) Urine Nitrite (Negative) Urine Bilirubin (Negative) Urine Urobilinogen (Negative) Ur Leukocyte Esterase (Negative) Urine WBC (Auto) (0-5) /hpf Urine RBC (Auto) (0-4) /hpf U Hyaline Cast (Auto) (0-5) /lpf U Epithel Cells (Auto) (0-5) /lpf Urine Bacteria (Auto) (Negative) COVID-19 Eval Order [facility]sv at [facility] SARS-CoV-2 (PCR) NEGATIVE (Negative) Influenza Type A (PCR) Negative (Neg) Influenza Type B (PCR) Negative (Neg) RSV (RT-PCR) Negative (Neg) Administered Medications Discontinued Medications Cefepime HCl 2,000 mg/ Syringe 20 mls @ 5 mls/min IV NOW STA; Protocol Stop: 01/05/21 10:06 Last Admin: 01/05/21 11:51 Dose: 5 mls/min Documented by: [id number] Sodium Chloride (Nss 1000ml) 2,000 mls @ 999 mls/hr IV .Q2H1M ONE Stop: 01/05/21 12:04 Last Infusion: 01/05/21 14:12 Dose: 0 mls/hr Documented by: [id number] Admin: 01/05/21 11:00 Dose: 999 mls/hr Documented by: [id number] Sodium Chloride (Nss) 500 mls @ 999 mls/hr IV .Q31M ONE Stop: 01/05/21 15:59 Last Admin: 01/05/21 15:59 Dose: 999 mls/hr Documented by: [id number] Ioversol (Ioversol 100ml) 94 ml IV ONCE ONE Stop: 01/05/21 12:10 Last Admin: 01/05/21 12:10 Dose: 94 ml Documented by: [id number] Discharge Plan Visit Data Chief Complaint: Infection Stated Complaint: FEVER,INFECTION ED Provider: Maciej Lin Discharge Problem: Complicated UTI (urinary tract infection), Leukopenia, Acidosis, lactic, Sepsis Patient Disposition: Admitted As Inpatient Discharge Instructions Interventions: ED Discharge Assessment Last Done: 01/05/21 15:46 Discharge Problem: Leukopenia Qualifiers: Leukopenia type: unspecified Qualified Code(s): D72.819 - Decreased white blood cell count, unspecified Sepsis Qualifiers: Sepsis type: sepsis due to unspecified organism Sepsis acute organ dysfunction status: unspecified Qualified Code(s): A41.9 - Sepsis, unspecified organism
--- NOTE | 2021-01-05 10:41 | XRay Report ---
XR chest 1V portable HISTORY: SEPSIS COMPARISON: Chest 11/25/2016. FINDINGS: There are poststernotomy changes and a left-sided dual-chamber pacemaker. The heart is top normal in size. No pleural effusions. No pneumothorax. No focal lung consolidations to suggest pneumo kayy. No evidence for pulmonary edema. Possible 1 cm nodule within the right lower lobe. This favors a tortuous vessel. This will likely be assessed on the same day abdomen and pelvis CT. IMPRESSION: 1. No acute process within the chest. 2. Possible 1 cm nodule within the right lower lobe. This favors a tortuous vessel. This will likely be assessed on the same day abdomen and pelvis CT. ACT 112: Negative or not required by law. Electronically signed by: Rohan Juarez M.D. 01/05/2021 10:39 AM
[2021-01-05 10:59] LABS: Basophils # (auto) 0.01 K/uL (0-0.2); Basophils % (auto) 0.2 %; Eosinophils # (auto) 0.01 K/uL (0-0.5); Eosinophils % (auto) 0.2 %; Hemoglobin 13.7 g/dL (14.0-18.0); Immature Granulocytes # (auto) 0.03 K/uL (0.00-0.02); Immature Granulocytes % (auto) 0.7 %; Lymphocytes % (auto) 9.9 %; Mean Corpuscular Hemoglobin 32.2 pg (25-34); Mean Corpuscular Hgb Conc 35.1 g/dL (32-36); Mean Corpuscular Volume 91.5 fL (80-100); Monocytes # (auto) 0.03 K/uL (0.11-0.59); Monocytes % (auto) 0.7 %; Neutrophils # (auto) 3.56 K/uL (1.4-6.5); Neutrophils % (auto) 88.3 %; Platelet Count 176 K/uL (130-400); RDW Coefficient of Variation 13.2 % (11.5-14.5); RDW Standard Deviation 44.1 fL (36.4-46.3); Red Blood Count 4.26 M/uL (4.7-6.1); White Blood Count 4.04 K/uL (4.8-10.8)
[2021-01-05 11:11] LABS: Partial Thromboplastin Ratio 0.9; Partial Thromboplastin Time 23.3 Seconds (21.0-31.0); Prothrombin Time 10.4 Seconds (9.0-12.0)
[2021-01-05 11:12] LABS: Appearance Urine Turbid (Clear); Bacteria Urine Automated 4+ (Negative); Bilirubin Urine Negative (Negative); Blood Urine 3+ (Negative); Color Urine Dark Yellow; Epithelial Cell Urine Auto 0-5 /lpf (0-5); Glucose Urine UA Negative (Negative); Ketones Urine Trace (Negative); Leukocyte Esterase Urine 3+ (Negative); Nitrite Urine Positive (Negative); Protein Urine 2+ (Negative); RBC Urine Automated >30 /hpf (0-4); Specific Gravity Urine 1.024 (1.000-1.030); Urobilinogen Urine Negative (Negative); WBC Urine Automated >30 /hpf (0-5); pH Urine 5.5 (4.5-7.5)
[2021-01-05 11:19] LABS: Alanine Aminotransferase 23 U/L (12-78); Albumin Level 3.5 gm/dl (3.4-5.0); Aspartate Aminotransferase 23 U/L (15-37); BUN Creatinine Ratio 11.8 (10-20); Blood Urea Nitrogen 16 mg/dl (7-18); Calcium 8.6 mg/dl (8.5-10.1); Carbon Dioxide 23 mmol/L (21-32); Chloride 105 mmol/L (98-107); Creatinine Clr Calc Pharmacy 54.3 ml/min; Est GFR (Non-African American) 52.7; Glucose 149 mg/dl (70-99); Magnesium 1.7 mg/dl (1.8-2.4); Potassium 3.9 mmol/L (3.5-5.1); Sodium 137 mmol/L (136-145)
[2021-01-05 11:24] LABS: Albumin Globulin Ratio 0.8 (0.9-2); Alkaline Phosphatase 83 U/L (45-117); Bilirubin,Total 0.7 mg/dl (0.2-1); Globulin 4.4 gm/dl (2.5-4.0); Total Protein 7.9 gm/dl (6.4-8.2); Troponin I < 0.015 ng/ml (0-0.045)
[2021-01-05 11:27] LABS: iSTAT Creatinine 1.1 mg/dl (0.6-1.3); iSTAT Hemoglobin 11.6 g/dl (14.0-18.0); iSTAT Ionized Calcium 1.12 mmol/l (1.12-1.32); iSTAT Potassium 3.7 mmol/L (3.3-5.0)
[2021-01-05] MEDS ORDERED: OPTIRAY 320 100ml IV ONE (12:09)
--- NOTE | 2021-01-05 12:29 | CT Scan Report ---
CT OF THE ABDOMEN AND PELVIS WITH CONTRAST CLINICAL HISTORY: shaking chills lower abd pain w/ prostate biopsy COMPARISON STUDY: CT of the chest and abdomen June 15, 2006. TECHNIQUE: Following IV administration of 94 mL of Optiray-320, axial images of the abdomen and pelvi s were obtained from the lung bases to the proximal femurs. Images were reviewed in the axial, sagitt al, and coronal planes. IV contrast was administered without complication. Automated exposure contro l was utilized for the study. A dose lowering technique was utilized adhering to the principles of A CK. CT DOSE: 706.30 mGycm FINDINGS: Lung bases are unremarkable. Pacer leads are partially imaged. Note is made of cardiomegaly . No pneumatosis, free air or portal venous gas is present. Subcentimeter hypodense left renal lesion is too small to characterize but likely reflects a cyst. The liver, spleen, adrenal glands, right ki dney and pancreas are unremarkable. There is no biliary or pancreatic ductal dilatation. There is no evidence for a bowel obstruction. There is sigmoid diverticulosis without evidence for acute divertic ulitis. Prostate is moderately enlarged. There is minimal infiltration adjacent to the prostate and t he seminal vesicles. There is no fluid collection. There is no lymphadenopathy. There is a prominent left common iliac lymph node that measures 9 mm in short axis diameter. This is probably benign. No s uspicious osseous lesions are present. There is extensive atherosclerotic plaque of the abdominal aor ta. IMPRESSION: 1. Moderate enlargement of the prostate. Minimal infiltration adjacent to the prostate and seminal ve sicles is nonspecific and could be related to recent procedure or represent an infectious process. No fluid collection to suggest abscess or hematoma. 2. Colonic diverticulosis without evidence for acute diverticulitis. No bowel obstruction. ACT 112: Negative or not required by law. Electronically signed by: Bhavin Roe M.D. 01/05/2021 12:28 PM
[2021-01-05 12:52] LABS: Influenza A virus by PCR Negative (Neg); Influenza B virus by PCR Negative (Neg); RSV by PCR Negative (Neg); SARS CoV2 RNA(COVID-19) InHosp NEGATIVE (Negative)
[2021-01-05] MEDS ORDERED: VANCOMYCIN CONSULT ACTIVE PRN (13:08)
--- NOTE | 2021-01-05 13:18 | History & Physical Report ---
Date of Service January 05, 2021 Assessment & Plan (1) Complicated UTI (urinary tract infection): This is a 75-year-old male who has significant past medical history of CAD status post CABG x4 in 2005, sinus node dysfunction status post pacemaker, HTN, prediabetes, history of DVT, thoracic ascending aortic aneurysm, BPH who presents to ED secondary to chills, UTI symptoms x3 days and recent prostate biopsy on 12/30/2020. Patient does not meet SIRS/sepsis criteria per current [facility] guidelines. He does have evidence of abnormal urinalysis, sinus tachycardia & lactic acidosis. He is status post prostate biopsy by Dr. Schneider at [facility] on 12/30. He empirically was treated with IM gentamicin and oral ciprofloxacin. Acute UTI Lactic acidosis S/P prostate biopsy due to elevated PSA -discussed with Dr. Lennox Schneider of [facility] - he is aware and agrees with plan, can reach out if any urologic questions arise. Prostate bx path results pending Admit to PCU Continue broad-spectrum IV antibiotics with vancomycin and Rocephin Blood and urine cultures pending Received 2 L of IVF in ED, continue fluid resuscitation Repeat lactic acid pending Hypomagnesemia Replete Repeat mag in a.m. CAD with history of CABG x4 Sinus node dysfunction with permanent pacemaker in place follows [facility] cardiology Continue ASA and Ranexa Hold metoprolol for now secondary to blood pressures systolically in low 100s, reassess in a.m. and resume as soon as able Pre DM a1c 5.7 10/2020 monitor FBS hx of DVT/DVT prophylaxis SQ Lovenox, encourage ambulation Dispo: PCU PCP: Dr. Lim Full Code Patient was seen and examined in collaboration with Dr. Reynoso, please see addendum History of Present Illness Chief Complaint: Chills, UTI sx x 3 days; prostate bx 12/30. Primary Care Provider: Celestina Conley MD This is a 75-year-old male who has significant past medical history of CAD status post CABG x4 in 2005, sinus node dysfunction status post pacemaker, HTN, prediabetes, history of DVT, thoracic ascending aortic aneurysm, BPH who presents to ED secondary to chills, UTI symptoms x3 days and recent prostate biopsy on 12/30/2020. Of significance patient underwent prostate biopsy by Dr. Schneider at [facility] on 12/30 secondary to elevated PSA of 9. Prior to biopsy he took preop ciprofloxacin and had IM gentamicin. He also finished course of Cipro postoperatively. Last dose of antibiotic was 3 days ago. Approximately 3 days ago he developed dysuria and increased frequency. He also admitted to chills. He woke up this morning and was shaking and overall felt ill so opted to present to ED. He denies any documented fever or sweats but overall was chilled this morning. He denies any lightheadedness, dizziness, chest pain, shortness breath, cough, URI symptoms, nausea, vomiting, abdominal pain, flank pain, hematuria, melena, hematochezia, increased urinary urgency. He did have mild hematuria postoperatively but this has since resolved. His appetite is otherwise been okay. He did not take his morning medications today. In ED patient did not meet SIRS or sepsis criteria although he was mildly tachycardic and he did have elevation of his lactic acid to 3.6. His urinalysis was consistent with UTI. CT abdomen pelvis revealed moderate prostamegaly without evidence of abscess or fluid collection. He received 2 L of IV fluid as well as IV cefepime. Allergies Allergy/AdvReac Type Severity Reaction Status Date / Time [id number] Reductase AdvReac Intermediate MUSCLE Verified 01/05/21 11:29 Inhibitor ACHES Home Medications Medication Instructions Recorded Confirmed Type Glucosamine Chondroitin 1 cap PO BID 10/30/19 01/05/21 History Multivitamin 50 Plus 1 tab PO QAM 10/30/19 01/05/21 History metoprolol succinate 75 mg PO QAM 10/30/19 01/05/21 History ranolazine [Ranexa] 500 mg PO BID 10/30/19 01/05/21 History Prostagenix 3 tab PO DAILY 01/05/21 01/05/21 History aspirin 81 mg PO DAILY 01/05/21 01/05/21 History ibuprofen 200 mg PO Q6H PRN 01/05/21 01/05/21 History Past Med/Surg History Medical History BPH (benign prostatic hyperplasia) Collapsed lung HX OF AT AGE 24 (REQUIRED CHEST TUBE) GERD (gastroesophageal reflux disease) Hx of atrial fibrillation, no current medication Hx of blood clots LEFT ARM S/P PACEMAKER IMPLANTED (ON COUMADIN THERAPY) Hypertension Macular hole CURRENTLY IN RT EYE Myocardial Infarction 2006 Pacemaker PLACED 4 YEARS AGO>A-FIB ([employer]) MONITORED BY DR. SANTAMARIA Surgical History H/O cardiac radiofrequency ablation 2008 History of appendectomy History of cardiac cath 2006 History of colonoscopy History of coronary artery bypass graft Dr Sumner, Off pump coronary artery bypass grafting x4 using INFANTE to LAD, reverse saphenous vein graft to diagonal, and sequential reverse saphenous vein graft to ramus intermedius and obtuse marginal; endoscopic vein harvest ing 4 VESSELS AT [facility] 2006 History of herniorrhaphy X 3 REPAIRS (INGUINAL AREAS) History of tonsillectomy History of tooth extraction Hx of vasectomy S/P LASIK surgery of both eyes Family History Father , 77 Myocardial infarction Coronary heart disease Stroke Mother Myocardial infarction Coronary heart disease Social History (Updated 01/05/21 @ 14:26 by Lolis Reyes PA-C) Smoking Status: Former smoker Tobacco Type: Cigarettes packs per day: 1; Years Smoked: 10; Smoking End Date: 1967; Second Hand Exposure: No; Do You Dip or Chew Tobacco: No; Tobacco Cessation Education Requested by Patient: No Hx Alcohol Use: No Hx Substance Use: No Preferred Language: Turkish Communication Ability: Effective All Purpose Clerk Required: No Beliefs That Will Affect Care: None Current Living Situation: Family current occupational status: employed 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 Other Information That Helps Us Care for You: No Feels Safe at Home: Yes Safety Concerns: Feels Safe At This Time Assistive Devices: Denture - Upper, Denture - Lower and Glasses Review of Systems Review of Systems: All systems reviewed & are unremarkable except as noted in HPI & below Physical Exam Physical Exam: Constitutional: WD/WN, Male,vitals as above, NAD, sitting up in bed, pleasant, conversing easily Head: Normocephalic, Atraumatic Eyes: PERRL, conjunctivae normal, anicteric sclerae ENMT: external ear and nose normal, oropharynx normal Neck: trachea midline, no thyromegaly normal visual inspection Respiratory: normal respiratory effort, lungs clear to auscultation, no wheeze, rales, rhonchi. Normal insp/exp effort, no accessory muscle use Cardiovascular: RRR, no murmur, no edema Vessels: no JVD or carotid bruit Chest: Pacemaker LACW,normal inspection of chest Abdomen: normal bowel sounds, soft, nontender, no hepatosplenomegaly, no cva tenderness Musculoskeletal: no cyanosis or clubbing, extremities motor strength 5/5 Skin: no rashes, warm and dry normal turgor Neurologic: PERRL, EOMI, accommodation nl, no face palsy, no dysarthria CN's II-XI intact bilaterally and moves all extremities Psychiatric: A+Ox3, euthymic affect Lymphatic: no cervical or axillary lymphadenopathy : deferred Results & Data Results & Data ([facility]) Vital Signs (Past 12 Hours) Vital Signs Temp Pulse Resp BP Pulse Ox 01/05/21 12:30 91 H 20 108/66 01/05/21 12:12 90 01/05/21 11:51 89 103/53 L 01/05/21 11:30 88 01/05/21 11:00 92 H 01/05/21 10:54 93 H 01/05/21 09:50 36.9 C 100 H 18 148/[address] H [address] A/P: 1. Moderate enlargement of the prostate. Minimal infiltration adjacent to the prostate and seminal vesicles is nonspecific and could be related to recent procedure or represent an infectious process. No fluid collection to suggest abscess or hematoma. 2. Colonic diverticulosis without evidence for acute diverticulitis. No bowel obstruction. CXR: IMPRESSION: 1. No acute process within the chest. 2. Possible 1 cm nodule within the right lower lobe. This favors a tortuous vessel. This will likely be assessed on the same day abdomen and pelvis CT. Medications Administered Discontinued Medications Cefepime HCl 2,000 mg/ Syringe 20 mls @ 5 mls/min IV NOW STA; Protocol Stop: 01/05/21 10:06 Last Admin: 01/05/21 11:51 Dose: 5 mls/min Documented by: [id number] Sodium Chloride (Nss 1000ml) 2,000 mls @ 999 mls/hr IV .Q2H1M ONE Stop: 01/05/21 12:04 Last Admin: 01/05/21 11:00 Dose: 999 mls/hr Documented by: [id number] Ioversol (Ioversol 100ml) 94 ml IV ONCE ONE Stop: 01/05/21 12:10 Last Admin: 01/05/21 12:10 Dose: 94 ml Documented by: [id number] ECG Rate (beats per minute): 91 Rhythm: sinus with SA COVID-19 Results Results COVID-19 Adm Lab Results: RBC 4.26 M/uL (4.7-6.1) L 01/05/21 WBC 4.04 K/uL (4.8-10.8) L 01/05/21 Hgb 13.7 g/dL (14.0-18.0) L 01/05/21 Hct 39.0 % (42-52) L 01/05/21 Plt Count 176 K/uL (130-400) 01/05/21 Neutrophils (%) (Auto) 88.3 % 01/05/21 Lymphocytes (%) (Auto) 9.9 % 01/05/21 Monocytes # (Auto) 0.03 K/uL (0.11-0.59) L 01/05/21 Eosinophils # (Auto) 0.01 K/uL (0-0.5) 01/05/21 Immature Granulocyte % (Auto) 0.7 % 01/05/21 Neutrophils # (Auto) 3.56 K/uL (1.4-6.5) 01/05/21 Lymphocytes # (Auto) 0.40 K/uL (1.2-3.4) L 01/05/21 Monocytes # (Auto) 0.03 K/uL (0.11-0.59) L 01/05/21 Eosinophils # (Auto) 0.01 K/uL (0-0.5) 01/05/21 Basophils # (Auto) 0.01 K/uL (0-0.2) 01/05/21 Immature Granulocyte # (Auto) 0.03 K/uL (0.00-0.02) H 01/05/21 Na 137 mmol/L (136-145) 01/05/21 K 3.9 mmol/L (3.5-5.1) 01/05/21 Cl 105 mmol/L (98-107) 01/05/21 CO2 23 mmol/L (21-32) 01/05/21 Anion Gap 9.0 (3-11) 01/05/21 BUN 16 mg/dl (7-18) 01/05/21 Creatinine 1.33 mg/dl (0.6-1.4) 01/05/21 BUN/Creatinine Ratio 11.8 (10-20) 01/05/21 Glucose Level 149 mg/dl (70-99) H 01/05/21 Ca 8.6 mg/dl (8.5-10.1) 01/05/21 Total Bilirubin 0.7 mg/dl (0.2-1) 01/05/21 AST/SGOT 23 U/L (15-37) 01/05/21 ALT/SGPT 23 U/L (12-78) 01/05/21 Alkaline Phosphatase 83 U/L (45-117) 01/05/21 Total Protein 7.9 gm/dl (6.4-8.2) 01/05/21 Albumin 3.5 gm/dl (3.4-5.0) 01/05/21 Globulin 4.4 gm/dl (2.5-4.0) H 01/05/21 Albumin/Globulin Ratio 0.8 (0.9-2) L 01/05/21 Troponin I < 0.015 ng/ml (0-0.045) 01/05/21 Procalcitonin 0.41 ng/ml (0-0.5) 01/05/21 PTT 23.3 Seconds (21.0-31.0) 01/05/21 INR 1.0 (0.9-1.1) 01/05/21 COVID-19 PCR NEGATIVE (Negative) 01/05/21 Influenza Virus Type A (PCR) Negative (Neg) 01/05/21 Influenza Virus Type B (PCR) Negative (Neg) 01/05/21 Chest X-Ray 01/05/21 Code Status & VTE Plan Code Status Full Code VTE Prophylaxis Plan VTE Prophylaxis will be ordered: Yes Supervising Physician Co-Signing Physician Notes Pt seen and examined by me, care coordinated with Lolis Reyes PA-C, pls refer to her note above for further detail. Pt presents with chills after prostate biopsy. Was started on empiric Abx cefepime in the ED. Initially did not seem to meet sepsis criteria however pt developed fever over 39C, tachycardia, low BP despite IVF, WBC 4K, lactic acid over 4 (after IVF). Blood culture from ED positive for Gram negative bacili. Pt is bacteremic and septic. Will continue cefepime and vancomycin for now, add fla gyl. Cont. to follow final cultx. Repeat blood cultx. Cont. to closely monitor. On my evaluation in the ED pt was laying in bed and appeared tired. He denied any shakes or tremors at that time. He was alert and oriented and was answering questions appropriately. Lungs were clear to auscultation b/l w/o any wheezing, rhonchi or crackles. Abdomen soft nontender, nondistended with + bowel sounds.Heart sounds regular, at that time was not tachycardic. Family member was present at the bedside and updated. Johana Reynoso MD
[2021-01-05] MEDS ORDERED: MAGNESIUM SULFATE / D5W 1 GM/100 ML BAG IV STA ×2 (14:03→17:25)
[2021-01-05] MEDS ORDERED: VANCOMYCIN HCL 1,750 MG in SODIUM CHLORIDE 0.9% 500 ML IV STA (14:55)
[2021-01-05] MEDS ORDERED: SODIUM CHLORIDE 0.9% 500 ML IV ONE (15:29)
[2021-01-05] MEDS ORDERED: CEFEPIME CONSULT ACTIVE PRN (16:10)
--- NOTE | 2021-01-05 16:15 | Pharmacy Report ---
Pharmacy Abx Dose Short Note - Date of Service January 05, 2021 - Assessment & Plan Assessment 75 year old M receiving vancomycin and cefepime for treatment of complicated UTI. Per provider, covering MDRs due to recent urologic procedure and broad spectrum antibiotic use(cipro and gent). Day # 1 of antimicrobial therapy. Plan Vancomycin * Loading dose of 1750mgX 1 (anticipate this given ~1630) * Initiate maintenance dose of 1000 mg IV every 12 hours 01/06 @0430 * Trough or random level ordered for: 01/07/21 @ 1600 Pharmacy will continue to follow and will adjust dose/frequency as necessary. Thank you.
[2021-01-05] MEDS ORDERED: ONDANSETRON INJ 2 MG/ML 2 ML VIAL IV PRN (16:25)
[2021-01-05] MEDS ORDERED: ALUMINUM/MAGNESIUM SUSP 30 ML UDC PO PRN (16:25)
[2021-01-05] MEDS ORDERED: MAGNESIUM HYDROXIDE SUSP 30 ML UDC PO PRN (16:25)
[2021-01-05] MEDS ORDERED: CEFEPIME CONSULT ACTIVE ONE (16:25)
[2021-01-05] MEDS ORDERED: POLYETHYLENE (MIRALAX) 17 GM PACK PO PRN (16:25)
[2021-01-05] MEDS: NSS + 20MEQ KCL 20 MEQ/1,000 ML BAG IV SCH (19:35)
[2021-01-05] MEDS: ACETAMINOPHEN 325 MG TAB PO PRN ×2 (19:44→23:53)
[2021-01-05] MEDS ORDERED: SODIUM CHLORIDE 0.9% 1000ML 1,000 ML IV SCH (21:00)
[2021-01-05] MEDS ORDERED: NON-FORMULARY MEDICATION (Glucos Sul 2kcl-Msm-Chond-C-Mn [Glucosamine Chondroitin] 550-30- PO SCH (21:00)
[2021-01-05] MEDS: RANOLAZINE 500 MG ER TAB PO SCH (21:14)
[2021-01-05] MEDS: ENOXAPARIN INJ 40 MG/0.4 ML SYR SQ SCH (21:14)
[2021-01-05] MEDS ORDERED: CEFEPIME 2,000 MG in SYRINGE 0 ML IV SCH (21:30)
[2021-01-05] MEDS: metroNIDAZOLE 500 MG/100 ML BAG IV SCH (21:59)
[2021-01-05] MEDS: CEFEPIME 2,000 MG in SYRINGE 0 ML IV SCH (22:14)
[2021-01-05] MEDS: ALBUMIN 25% 12.5 GM/50 ML VIAL IV SCH ×2 (22:40→23:45)
[2021-01-06] MEDS ORDERED: SODIUM CHLORIDE 0.9% 500 ML IV SCH (00:30)
[2021-01-06] MEDS: VANCOMYCIN HCL 1,000 MG in SODIUM CHLORIDE 0.9% 250 ML IV SCH ×2 (03:28→15:56)
[2021-01-06] MEDS: NSS + 20MEQ KCL 20 MEQ/1,000 ML BAG IV SCH (05:23)
[2021-01-06] MEDS: metroNIDAZOLE 500 MG/100 ML BAG IV SCH ×3 (05:25→22:23)
[2021-01-06 05:56] LABS: Basophils # (auto) 0.01 K/uL (0-0.2); Basophils % (auto) 0.1 %; Eosinophils # (auto) 0.01 K/uL (0-0.5); Eosinophils % (auto) 0.1 %; Hematocrit (blood only) 32.4 % (42-52); Hemoglobin 11.4 g/dL (14.0-18.0); Immature Granulocytes # (auto) 0.27 K/uL (0.00-0.02); Immature Granulocytes % (auto) 1.8 %; Lymphocytes # (auto) 0.74 K/uL (1.2-3.4); Lymphocytes % (auto) 4.8 %; Mean Corpuscular Hgb Conc 35.2 g/dL (32-36); Mean Platelet Volume 8.9 fL (7.4-10.4); Monocytes # (auto) 0.97 K/uL (0.11-0.59); Monocytes % (auto) 6.4 %; Neutrophils # (auto) 13.26 K/uL (1.4-6.5); Neutrophils % (auto) 86.8 %; Platelet Count 133 K/uL (130-400); RDW Coefficient of Variation 13.6 % (11.5-14.5); RDW Standard Deviation 44.9 fL (36.4-46.3); Red Blood Count 3.56 M/uL (4.7-6.1); White Blood Count 15.26 K/uL (4.8-10.8)
[2021-01-06 06:21] LABS: BUN Creatinine Ratio 12.6 (10-20); Calcium 7.6 mg/dl (8.5-10.1); Creatinine Clr Calc Pharmacy 52.7 ml/min; Est GFR (African American) 58.9; Est GFR (Non-African American) 50.8; Magnesium 1.6 mg/dl (1.8-2.4)
[2021-01-06 07:05] LABS: Phosphorus 1.5 mg/dl (2.5-4.9)
[2021-01-06] MEDS ORDERED: SODIUM PHOSPHATE 3 MMOL/1 ML INFUSION IV STA (07:09)
[2021-01-06] MEDS ORDERED: SODIUM CHLORIDE 0.9% 1000ML 500 ML IV ONE (07:10)
--- NOTE | 2021-01-06 07:13 | Hospitalist Progress Note ---
Date of Service January 06, 2021 Assessment & Plan (1) Sepsis: (2) Acidosis, lactic: (3) Complicated UTI (urinary tract infection): (4) Gram-negative bacteremia: This is a 75-year-old male who has significant past medical history of CAD status post CABG x4 in 2005, sinus node dysfunction status post pacemaker, HTN, prediabetes, history of DVT, thoracic ascending aortic aneurysm, BPH who presents to ED secondary to chills, UTI symptoms x3 days and recent prostate biopsy on 12/30/2020. He is status post prostate biopsy by Dr. Schneider at [facility] on 12/30. He empirically was treated with IM gentamicin and oral ciprofloxacin Gram-negative sepsis , POA On admission has evidence of abnormal urinalysis, sinus tachycardia & lactic acidosis. Patient also hypotensive, and received IV fluids in the ED. Received cefepime in the ED. No fever on initial evaluation however several hours later patient had temperature over 39 Celsius Blood cultures were obtained in the ED and are positive for gram-negative bacilli Urine culture also positive for gram-negative bacilli Follow final cultures Lactic acid persistently elevated despite IV fluid resuscitation, will also add IV albumin to help with hypotension Patient remains critically ill (01/06) Acute UTI Lactic acidosis S/P prostate biopsy due to elevated PSA -discussed with Dr. Lennox Schneider of [facility] - he is aware and agrees with plan, can reach out if any urologic questions arise. Prostate bx path results pending Admit to PCU Continue broad-spectrum IV antibiotics with vancomycin and cefepime, added flagyl for now as well, until final cultx available Blood and urine cultures pending Received 2 L of IVF in ED, continue fluid resuscitation Repeat lactic acid elevated above 4, management as above Hypomagnesemia Replete and monitor CAD with history of CABG x4 Sinus node dysfunction with permanent pacemaker in place follows [facility] cardiology Continue ASA and Ran[place] Hold metoprolol for now secondary to blood pressures systolically in low 100s, reassess in a.m. and resume as soon as able Given pacemaker, if bacteremia persistent, will need to contact cardiology/ID for further input Pre DM a1c 5.7 10/2020 monitor FBS hx of DVT/DVT prophylaxis SQ Lovenox, encourage ambulation Dispo: PCU PCP: Dr. Lim Full Code Admission and Anticipated Discharge Date Admission Date: January 05, 2021 Subjective Patient seen in follow-up of sepsis, gram-negative bacteremia, status post prostate biopsy Hypotensive still overnight, febrile overnight Currently he feels better, however he is still very weak Loose stools this morning, will check for C. difficile No chest pain or shortness of breath, no nausea or vomiting Review of Systems Review of Systems: All systems reviewed & are unremarkable except as noted in HPI & below Constitutional: + fatigue and + malaise Respiratory: no cough and no dyspnea Cardiovascular: no chest pain and no palpitations Gastrointestinal: + diarrhea/loose stools; no abdominal pain, no nausea and no vomiting Physical Exam Physical Exam: Constitutional: WD/WN, Male, laying in bed in NAD, however appears ill and fatigued Head: Normocephalic, Atraumatic Eyes: PERRL, EOMI, conjunctivae normal, anicteric sclerae ENMT: external ear and nose normal, oropharynx normal Neck: trachea midline, no thyromegaly normal visual inspection Respiratory: normal respiratory effort, lungs clear to auscultation, no wheeze, rales, rhonchi. Normal insp/exp effort, no accessory muscle use Cardiovascular: RRR, no murmur, no edema Vessels: no JVD or carotid bruit Chest: Pacemaker LACW,normal inspection of chest Abdomen: normal bowel sounds, soft, nontender, no cva tenderness Musculoskeletal: no cyanosis or clubbing, extremities motor strength 5/5 Skin: no rashes, warm, normal turgor Neurologic: PERRL, EOMI, no face palsy, no dysarthria CN's II-XI intact bilaterally and moves all extremities Psychiatric: A+Ox3, euthymic affect Results & Data Results & Data ([facility]) Vital Signs (Past 12 Hours) Vital Signs Temp Pulse Pulse Resp BP Pulse Ox 01/06/21 03:36 37.4 C 85 19 98/59 L 91 01/06/21 01:40 95/55 L 01/06/21 00:25 96/56 L 01/06/21 00:04 37.9 C H 90 18 90/51 L 90 01/06/21 00:00 87 01/05/21 20:30 39.3 C H 105 H 109/61 01/05/21 20:03 37.7 C H 68 18 98/52 L 94 01/05/21 19:42 39.4 C H 84 150/63 H 95 Laboratory Results 01/06/21 01/06/21 01/06/21 Range/Units 05:29 05:29 05:29 WBC (4.8-10.8) K/uL RBC (4.7-6.1) M/uL Hgb (14.0-18.0) g/dL POC Hgb (14.0-18.0) g/dl Hct (42-52) % POC Hct (42-52) % MCV (80-100) fL MCH (25-34) pg MCHC (32-36) g/dL RDW Std Deviation (36.4-46.3) fL RDW Coeff of Valentín (11.5-14.5) % Plt Count (130-400) K/uL MPV (7.4-10.4) fL Immature Gran % (Auto) % Neut % (Auto) % Lymph % (Auto) % [place] % (Auto) % Eos % (Auto) % Baso % (Auto) % Neut # (Auto) (1.4-6.5) K/uL Lymph # (Auto) (1.2-3.4) K/uL [place] # (Auto) (0.11-0.59) K/uL Eos # (Auto) (0-0.5) K/uL Baso # (Auto) (0-0.2) K/uL Immature Gran # (Auto) (0.00-0.02) K/uL PT (9.0-12.0) Seconds INR (0.9-1.1) APTT (21.0-31.0) Seconds PTT Ratio POC Sodium (135-144) mmol/L Sodium 138 (136-145) mmol/L POC Potassium (3.3-5.0) mmol/L Potassium 4.0 (3.5-5.1) mmol/L POC Chloride (101-112) mmol/L Chloride 111 H (98-107) mmol/L Carbon Dioxide 23 (21-32) mmol/L POC Total CO2 (24-31) mmol/L Anion Gap 4.0 (3-11) POC Anion Gap (16-25) mmol/L POC BUN (7-18) mg/dl BUN 17 (7-18) mg/dl Creatinine 1.37 (0.6-1.4) mg/dl POC Creatinine (0.6-1.3) mg/dl Est Cr Clr Drug Dosing 52.7 ml/min Est GFR ( Amer) 58.9 Est GFR (Non-Af Amer) 50.8 BUN/Creatinine Ratio 12.6 (10-20) Glucose 126 H (70-99) mg/dl POC Glucose (70-99) mg/dl POC Glucose (other) (70-99) mg/dl Lactate 2.5 H* (0.4-2.0) mmol/L Calcium 7.6 L (8.5-10.1) mg/dl POC Ioniz Calcium Jarod (1.12-1.32) mmol/l Phosphorus 1.5 L* (2.5-4.9) mg/dl Magnesium 1.6 L (1.8-2.4) mg/dl Total Bilirubin (0.2-1) mg/dl AST (15-37) U/L ALT (12-78) U/L Alkaline Phosphatase (45-117) U/L Troponin I (0-0.045) ng/ml Total Protein (6.4-8.2) gm/dl Albumin (3.4-5.0) gm/dl Globulin (2.5-4.0) gm/dl Albumin/Globulin Ratio (0.9-2) Procalcitonin 27.65 H (0-0.5) ng/ml Urine Color Urine Appearance (Clear) Urine pH (4.5-7.5) Ur Specific [place] (1.000-1.030) Urine Protein (Negative) Urine Glucose (UA) (Negative) Urine Ketones (Negative) Urine Blood (Negative) Urine Nitrite (Negative) Urine Bilirubin (Negative) Urine Urobilinogen (Negative) Ur Leukocyte Esterase (Negative) Urine WBC (Auto) (0-5) /hpf Urine RBC (Auto) (0-4) /hpf U Hyaline Cast (Auto) (0-5) /lpf U Epithel Cells (Auto) (0-5) /lpf Urine Bacteria (Auto) (Negative) COVID-19 Eval Order SARS-CoV-2 (PCR) (Negative) Hepatitis C Ab Screen (Neg) Influenza Type A (PCR) (Neg) Influenza Type B (PCR) (Neg) RSV (RT-PCR) (Neg) 01/06/21 01/05/21 01/05/21 Range/Units 05:29 20:57 19:33 WBC 15.26 H D (4.8-10.8) K/uL RBC 3.56 L (4.7-6.1) M/uL Hgb 11.4 L (14.0-18.0) g/dL POC Hgb (14.0-18.0) g/dl Hct 32.4 L (42-52) % POC Hct (42-52) % MCV 91.0 (80-100) fL MCH 32.0 (25-34) pg MCHC 35.2 (32-36) g/dL RDW Std Deviation 44.9 (36.4-46.3) fL RDW Coeff of Valentín 13.6 (11.5-14.5) % Plt Count 133 (130-400) K/uL MPV 8.9 (7.4-10.4) fL Immature Gran % (Auto) 1.8 % Neut % (Auto) 86.8 % Lymph % (Auto) 4.8 % [place] % (Auto) 6.4 % Eos % (Auto) 0.1 % Baso % (Auto) 0.1 % Neut # (Auto) 13.26 H (1.4-6.5) K/uL Lymph # (Auto) 0.74 L (1.2-3.4) K/uL [place] # (Auto) 0.97 H (0.11-0.59) K/uL Eos # (Auto) 0.01 (0-0.5) K/uL Baso # (Auto) 0.01 (0-0.2) K/uL Immature Gran # (Auto) 0.27 H (0.00-0.02) K/uL PT (9.0-12.0) Seconds INR (0.9-1.1) APTT (21.0-31.0) Seconds PTT Ratio POC Sodium (135-144) mmol/L Sodium (136-145) mmol/L POC Potassium (3.3-5.0) mmol/L Potassium (3.5-5.1) mmol/L POC Chloride (101-112) mmol/L Chloride (98-107) mmol/L Carbon Dioxide (21-32) mmol/L POC Total CO2 (24-31) mmol/L Anion Gap (3-11) POC Anion Gap (16-25) mmol/L POC BUN (7-18) mg/dl BUN (7-18) mg/dl Creatinine (0.6-1.4) mg/dl POC Creatinine (0.6-1.3) mg/dl Est Cr Clr Drug Dosing ml/min Est GFR ( Amer) Est GFR (Non-Af Amer) BUN/Creatinine Ratio (10-20) Glucose (70-99) mg/dl POC Glucose 121 H (70-99) mg/dl POC Glucose (other) (70-99) mg/dl Lactate 4.9 H* (0.4-2.0) mmol/L Calcium (8.5-10.1) mg/dl POC Ioniz Calcium Jarod (1.12-1.32) mmol/l Phosphorus (2.5-4.9) mg/dl Magnesium (1.8-2.4) mg/dl Total Bilirubin (0.2-1) mg/dl AST (15-37) U/L ALT (12-78) U/L Alkaline Phosphatase (45-117) U/L Troponin I (0-0.045) ng/ml Total Protein (6.4-8.2) gm/dl Albumin (3.4-5.0) gm/dl Globulin (2.5-4.0) gm/dl Albumin/Globulin Ratio (0.9-2) Procalcitonin (0-0.5) ng/ml Urine Color Urine Appearance (Clear) Urine pH (4.5-7.5) Ur Specific [place] (1.000-1.030) Urine Protein (Negative) Urine Glucose (UA) (Negative) Urine Ketones (Negative) Urine Blood (Negative) Urine Nitrite (Negative) Urine Bilirubin (Negative) Urine Urobilinogen (Negative) Ur Leukocyte Esterase (Negative) Urine WBC (Auto) (0-5) /hpf Urine RBC (Auto) (0-4) /hpf U Hyaline Cast (Auto) (0-5) /lpf U Epithel Cells (Auto) (0-5) /lpf Urine Bacteria (Auto) (Negative) COVID-19 Eval Order SARS-CoV-2 (PCR) (Negative) Hepatitis C Ab Screen (Neg) Influenza Type A (PCR) (Neg) Influenza Type B (PCR) (Neg) RSV (RT-PCR) (Neg) 01/05/21 01/05/21 01/05/21 Range/Units 18:53 15:07 11:55 WBC (4.8-10.8) K/uL RBC (4.7-6.1) M/uL Hgb (14.0-18.0) g/dL POC Hgb (14.0-18.0) g/dl Hct (42-52) % POC Hct (42-52) % MCV (80-100) fL MCH (25-34) pg MCHC (32-36) g/dL RDW Std Deviation (36.4-46.3) fL RDW Coeff of Valentín (11.5-14.5) % Plt Count (130-400) K/uL MPV (7.4-10.4) fL Immature Gran % (Auto) % Neut % (Auto) % Lymph % (Auto) % [place] % (Auto) % Eos % (Auto) % Baso % (Auto) % Neut # (Auto) (1.4-6.5) K/uL Lymph # (Auto) (1.2-3.4) K/uL [place] # (Auto) (0.11-0.59) K/uL Eos # (Auto) (0-0.5) K/uL Baso # (Auto) (0-0.2) K/uL Immature Gran # (Auto) (0.00-0.02) K/uL PT (9.0-12.0) Seconds INR (0.9-1.1) APTT (21.0-31.0) Seconds PTT Ratio POC Sodium (135-144) mmol/L Sodium (136-145) mmol/L POC Potassium (3.3-5.0) mmol/L Potassium (3.5-5.1) mmol/L POC Chloride (101-112) mmol/L Chloride (98-107) mmol/L Carbon Dioxide (21-32) mmol/L POC Total CO2 (24-31) mmol/L Anion Gap (3-11) POC Anion Gap (16-25) mmol/L POC BUN (7-18) mg/dl BUN (7-18) mg/dl Creatinine (0.6-1.4) mg/dl POC Creatinine (0.6-1.3) mg/dl Est Cr Clr Drug Dosing ml/min Est GFR ( Amer) Est GFR (Non-Af Amer) BUN/Creatinine Ratio (10-20) Glucose (70-99) mg/dl POC Glucose (70-99) mg/dl POC Glucose (other) (70-99) mg/dl Lactate 4.4 H* 2.6 H* (0.4-2.0) mmol/L Calcium (8.5-10.1) mg/dl POC Ioniz Calcium Jarod (1.12-1.32) mmol/l Phosphorus (2.5-4.9) mg/dl Magnesium (1.8-2.4) mg/dl Total Bilirubin (0.2-1) mg/dl AST (15-37) U/L ALT (12-78) U/L Alkaline Phosphatase (45-117) U/L Troponin I (0-0.045) ng/ml Total Protein (6.4-8.2) gm/dl Albumin (3.4-5.0) gm/dl Globulin (2.5-4.0) gm/dl Albumin/Globulin Ratio (0.9-2) Procalcitonin (0-0.5) ng/ml Urine Color Urine Appearance (Clear) Urine pH (4.5-7.5) Ur Specific [place] (1.000-1.030) Urine Protein (Negative) Urine Glucose (UA) (Negative) Urine Ketones (Negative) Urine Blood (Negative) Urine Nitrite (Negative) Urine Bilirubin (Negative) Urine Urobilinogen (Negative) Ur Leukocyte Esterase (Negative) Urine WBC (Auto) (0-5) /hpf Urine RBC (Auto) (0-4) /hpf U Hyaline Cast (Auto) (0-5) /lpf U Epithel Cells (Auto) (0-5) /lpf Urine Bacteria (Auto) (Negative) COVID-19 Eval Order SARS-CoV-2 (PCR) NEGATIVE (Negative) Hepatitis C Ab Screen (Neg) Influenza Type A (PCR) Negative (Neg) Influenza Type B (PCR) Negative (Neg) RSV (RT-PCR) Negative (Neg) 01/05/21 01/05/21 01/05/21 Range/Units 11:55 11:14 11:08 WBC (4.8-10.8) K/uL RBC (4.7-6.1) M/uL Hgb (14.0-18.0) g/dL POC Hgb 11.6 L (14.0-18.0) g/dl Hct (42-52) % POC Hct 34 L (42-52) % MCV (80-100) fL MCH (25-34) pg MCHC (32-36) g/dL RDW Std Deviation (36.4-46.3) fL RDW Coeff of Valentín (11.5-14.5) % Plt Count (130-400) K/uL MPV (7.4-10.4) fL Immature Gran % (Auto) % Neut % (Auto) % Lymph % (Auto) % [place] % (Auto) % Eos % (Auto) % Baso % (Auto) % Neut # (Auto) (1.4-6.5) K/uL Lymph # (Auto) (1.2-3.4) K/uL [place] # (Auto) (0.11-0.59) K/uL Eos # (Auto) (0-0.5) K/uL Baso # (Auto) (0-0.2) K/uL Immature Gran # (Auto) (0.00-0.02) K/uL PT (9.0-12.0) Seconds INR (0.9-1.1) APTT (21.0-31.0) Seconds PTT Ratio POC Sodium 138 (135-144) mmol/L Sodium (136-145) mmol/L POC Potassium 3.7 (3.3-5.0) mmol/L Potassium (3.5-5.1) mmol/L POC Chloride 102 (101-112) mmol/L Chloride (98-107) mmol/L Carbon Dioxide (21-32) mmol/L POC Total CO2 24 (24-31) mmol/L Anion Gap (3-11) POC Anion Gap 16.0 (16-25) mmol/L POC BUN 16 (7-18) mg/dl BUN (7-18) mg/dl Creatinine (0.6-1.4) mg/dl POC Creatinine 1.1 (0.6-1.3) mg/dl Est Cr Clr Drug Dosing ml/min Est GFR ( Amer) Est GFR (Non-Af Amer) BUN/Creatinine Ratio (10-20) Glucose (70-99) mg/dl POC Glucose (70-99) mg/dl POC Glucose (other) 121 H (70-99) mg/dl Lactate (0.4-2.0) mmol/L Calcium (8.5-10.1) mg/dl POC Ioniz Calcium Jarod 1.12 (1.12-1.32) mmol/l Phosphorus (2.5-4.9) mg/dl Magnesium (1.8-2.4) mg/dl Total Bilirubin (0.2-1) mg/dl AST (15-37) U/L ALT (12-78) U/L Alkaline Phosphatase (45-117) U/L Troponin I (0-0.045) ng/ml Total Protein (6.4-8.2) gm/dl Albumin (3.4-5.0) gm/dl Globulin (2.5-4.0) gm/dl Albumin/Globulin Ratio (0.9-2) Procalcitonin (0-0.5) ng/ml Urine Color Urine Appearance (Clear) Urine pH (4.5-7.5) Ur Specific [place] (1.000-1.030) Urine Protein (Negative) Urine Glucose (UA) (Negative) Urine Ketones (Negative) Urine Blood (Negative) Urine Nitrite (Negative) Urine Bilirubin (Negative) Urine Urobilinogen (Negative) Ur Leukocyte Esterase (Negative) Urine WBC (Auto) (0-5) /hpf Urine RBC (Auto) (0-4) /hpf U Hyaline Cast (Auto) (0-5) /lpf U Epithel Cells (Auto) (0-5) /lpf Urine Bacteria (Auto) (Negative) COVID-19 Eval Order CovFluRsv at [facility] SARS-CoV-2 (PCR) (Negative) Hepatitis C Ab Screen Neg (Neg) Influenza Type A (PCR) (Neg) Influenza Type B (PCR) (Neg) RSV (RT-PCR) (Neg) 01/05/21 01/05/21 01/05/21 Range/Units 11:06 10:40 10:40 WBC (4.8-10.8) K/uL RBC (4.7-6.1) M/uL Hgb (14.0-18.0) g/dL POC Hgb (14.0-18.0) g/dl Hct (42-52) % POC Hct (42-52) % MCV (80-100) fL MCH (25-34) pg MCHC (32-36) g/dL RDW Std Deviation (36.4-46.3) fL RDW Coeff of Valentín (11.5-14.5) % Plt Count (130-400) K/uL MPV (7.4-10.4) fL Immature Gran % (Auto) % Neut % (Auto) % Lymph % (Auto) % [place] % (Auto) % Eos % (Auto) % Baso % (Auto) % Neut # (Auto) (1.4-6.5) K/uL Lymph # (Auto) (1.2-3.4) K/uL [place] # (Auto) (0.11-0.59) K/uL Eos # (Auto) (0-0.5) K/uL Baso # (Auto) (0-0.2) K/uL Immature Gran # (Auto) (0.00-0.02) K/uL PT (9.0-12.0) Seconds INR (0.9-1.1) APTT (21.0-31.0) Seconds PTT Ratio POC Sodium (135-144) mmol/L Sodium (136-145) mmol/L POC Potassium (3.3-5.0) mmol/L Potassium (3.5-5.1) mmol/L POC Chloride (101-112) mmol/L Chloride (98-107) mmol/L Carbon Dioxide (21-32) mmol/L POC Total CO2 (24-31) mmol/L Anion Gap (3-11) POC Anion Gap (16-25) mmol/L POC BUN (7-18) mg/dl BUN (7-18) mg/dl Creatinine (0.6-1.4) mg/dl POC Creatinine (0.6-1.3) mg/dl Est Cr Clr Drug Dosing ml/min Est GFR ( Amer) Est GFR (Non-Af Amer) BUN/Creatinine Ratio (10-20) Glucose (70-99) mg/dl POC Glucose (70-99) mg/dl POC Glucose (other) (70-99) mg/dl Lactate 3.6 H* (0.4-2.0) mmol/L Calcium (8.5-10.1) mg/dl POC Ioniz Calcium Jarod (1.12-1.32) mmol/l Phosphorus (2.5-4.9) mg/dl Magnesium (1.8-2.4) mg/dl Total Bilirubin (0.2-1) mg/dl AST (15-37) U/L ALT (12-78) U/L Alkaline Phosphatase (45-117) U/L Troponin I (0-0.045) ng/ml Total Protein (6.4-8.2) gm/dl Albumin (3.4-5.0) gm/dl Globulin (2.5-4.0) gm/dl Albumin/Globulin Ratio (0.9-2) Procalcitonin 0.41 (0-0.5) ng/ml Urine Color Dark Yellow Urine Appearance Turbid A (Clear) Urine pH 5.5 (4.5-7.5) Ur Specific [place] 1.024 (1.000-1.030) Urine Protein 2+ H (Negative) Urine Glucose (UA) Negative (Negative) Urine Ketones Trace H (Negative) Urine Blood 3+ H (Negative) Urine Nitrite Positive A (Negative) Urine Bilirubin Negative (Negative) Urine Urobilinogen Negative (Negative) Ur Leukocyte Esterase 3+ H (Negative) Urine WBC (Auto) >30 H (0-5) /hpf Urine RBC (Auto) >30 H (0-4) /hpf U Hyaline Cast (Auto) 1-5 (0-5) /lpf U Epithel Cells (Auto) 0-5 (0-5) /lpf Urine Bacteria (Auto) 4+ H (Negative) COVID-19 Eval Order SARS-CoV-2 (PCR) (Negative) Hepatitis C Ab Screen (Neg) Influenza Type A (PCR) (Neg) Influenza Type B (PCR) (Neg) RSV (RT-PCR) (Neg) 01/05/21 01/05/21 01/05/21 Range/Units 10:40 10:40 10:40 WBC 4.04 L (4.8-10.8) K/uL RBC 4.26 L (4.7-6.1) M/uL Hgb 13.7 L (14.0-18.0) g/dL POC Hgb (14.0-18.0) g/dl Hct 39.0 L (42-52) % POC Hct (42-52) % MCV 91.5 (80-100) fL MCH 32.2 (25-34) pg MCHC 35.1 (32-36) g/dL RDW Std Deviation 44.1 (36.4-46.3) fL RDW Coeff of Valentín 13.2 (11.5-14.5) % Plt Count 176 (130-400) K/uL MPV 9.0 (7.4-10.4) fL Immature Gran % (Auto) 0.7 % Neut % (Auto) 88.3 % Lymph % (Auto) 9.9 % [place] % (Auto) 0.7 % Eos % (Auto) 0.2 % Baso % (Auto) 0.2 % Neut # (Auto) 3.56 (1.4-6.5) K/uL Lymph # (Auto) 0.40 L (1.2-3.4) K/uL [place] # (Auto) 0.03 L (0.11-0.59) K/uL Eos # (Auto) 0.01 (0-0.5) K/uL Baso # (Auto) 0.01 (0-0.2) K/uL Immature Gran # (Auto) 0.03 H (0.00-0.02) K/uL PT 10.4 (9.0-12.0) Seconds INR 1.0 (0.9-1.1) APTT 23.3 (21.0-31.0) Seconds PTT Ratio 0.9 POC Sodium (135-144) mmol/L Sodium 137 (136-145) mmol/L POC Potassium (3.3-5.0) mmol/L Potassium 3.9 (3.5-5.1) mmol/L POC Chloride (101-112) mmol/L Chloride 105 (98-107) mmol/L Carbon Dioxide 23 (21-32) mmol/L POC Total CO2 (24-31) mmol/L Anion Gap 9.0 (3-11) POC Anion Gap (16-25) mmol/L POC BUN (7-18) mg/dl BUN 16 (7-18) mg/dl Creatinine 1.33 (0.6-1.4) mg/dl POC Creatinine (0.6-1.3) mg/dl Est Cr Clr Drug Dosing 54.3 ml/min Est GFR ( Amer) 61.0 Est GFR (Non-Af Amer) 52.7 BUN/Creatinine Ratio 11.8 (10-20) Glucose 149 H (70-99) mg/dl POC Glucose (70-99) mg/dl POC Glucose (other) (70-99) mg/dl Lactate (0.4-2.0) mmol/L Calcium 8.6 (8.5-10.1) mg/dl POC Ioniz Calcium Jarod (1.12-1.32) mmol/l Phosphorus (2.5-4.9) mg/dl Magnesium 1.7 L (1.8-2.4) mg/dl Total Bilirubin 0.7 (0.2-1) mg/dl AST 23 (15-37) U/L ALT 23 (12-78) U/L Alkaline Phosphatase 83 (45-117) U/L Troponin I < 0.015 (0-0.045) ng/ml Total Protein 7.9 (6.4-8.2) gm/dl Albumin 3.5 (3.4-5.0) gm/dl Globulin 4.4 H (2.5-4.0) gm/dl Albumin/Globulin Ratio 0.8 L (0.9-2) Procalcitonin (0-0.5) ng/ml Urine Color Urine Appearance (Clear) Urine pH (4.5-7.5) Ur Specific [place] (1.000-1.030) Urine Protein (Negative) Urine Glucose (UA) (Negative) Urine Ketones (Negative) Urine Blood (Negative) Urine Nitrite (Negative) Urine Bilirubin (Negative) Urine Urobilinogen (Negative) Ur Leukocyte Esterase (Negative) Urine WBC (Auto) (0-5) /hpf Urine RBC (Auto) (0-4) /hpf U Hyaline Cast (Auto) (0-5) /lpf U Epithel Cells (Auto) (0-5) /lpf Urine Bacteria (Auto) (Negative) COVID-19 Eval Order SARS-CoV-2 (PCR) (Negative) Hepatitis C Ab Screen (Neg) Influenza Type A (PCR) (Neg) Influenza Type B (PCR) (Neg) RSV (RT-PCR) (Neg) (1) Sepsis Sepsis acute organ dysfunction status: unspecified Sepsis type: sepsis due to unspecified organism Qualified Code(s): A41.9 - Sepsis, unspecified organism
[2021-01-06] MEDS: MAGNESIUM SULFATE / D5W 1 GM/100 ML BAG IV SCH ×2 (07:14→09:02)
[2021-01-06] MEDS ORDERED: SODIUM PHOSPHATE 15 MMOL in SODIUM CHLORIDE 0.9% 250 ML IV ONE (07:15)
[2021-01-06] MEDS ORDERED: MAGNESIUM SULFATE / D5W 1 GM/100 ML BAG IV ONE (07:30)
[2021-01-06] MEDS: RANOLAZINE 500 MG ER TAB PO SCH ×2 (08:00→19:58)
[2021-01-06] MEDS: ADVANCED PROBIOTIC 1250 MG CAPSULE PO SCH (08:02)
[2021-01-06] MEDS: ASPIRIN 81 MG ECTAB PO SCH (08:02)
[2021-01-06] MEDS: CEROVITE ADV FORMULA TAB PO SCH (08:02)
[2021-01-06] MEDS ORDERED: cefTRIAXone SODIUM 2,000 MG in DEXTROSE 5% 50 ML IV SCH (09:00)
[2021-01-06] MEDS: ALBUMIN 25% 12.5 GM/50 ML VIAL IV SCH ×2 (10:07→11:01)
[2021-01-06] MEDS: CEFEPIME 2,000 MG in SYRINGE 0 ML IV SCH ×2 (11:03→22:38)
[2021-01-06] MEDS: ACETAMINOPHEN 325 MG TAB PO PRN ×2 (12:55→17:56)
[2021-01-06] MEDS ORDERED: FUROSEMIDE 20 MG in SYRINGE 0 ML IV ONE ×3 (18:23→22:30)
--- NOTE | 2021-01-06 18:49 | XRay Report ---
XR chest 1V portable HISTORY: shortness of breath, ?pulm congestion COMPARISON: Chest 01/05/2021. FINDINGS: No pneumothorax. The heart is enlarged. There are poststernotomy changes and a left-sided p acemaker. There are small bilateral pleural effusions with bibasilar airspace opacities, right greate r than left. There is mild interstitial pulmonary edema. IMPRESSION: 1. Mild interstitial pulmonary edema and small bilateral pleural effusions. 2. Right greater than left bibasilar airspace opacities. This could be due to atelectasis or pneumoni a. ACT 112: Negative or not required by law. Electronically signed by: Rohan Juarez M.D. 01/06/2021 6:48 PM
[2021-01-07] MEDS: VANCOMYCIN HCL 1,000 MG in SODIUM CHLORIDE 0.9% 250 ML IV SCH ×2 (03:35→16:47)
[2021-01-07] MEDS: metroNIDAZOLE 500 MG/100 ML BAG IV SCH ×2 (05:21→14:14)
[2021-01-07 07:27] LABS: Hematocrit (blood only) 33.1 % (42-52); Hemoglobin 11.9 g/dL (14.0-18.0); Mean Corpuscular Hemoglobin 31.9 pg (25-34); Mean Corpuscular Volume 88.7 fL (80-100); Mean Platelet Volume 9.2 fL (7.4-10.4); Platelet Count 130 K/uL (130-400); RDW Coefficient of Variation 13.9 % (11.5-14.5); RDW Standard Deviation 45.5 fL (36.4-46.3); Red Blood Count 3.73 M/uL (4.7-6.1); White Blood Count 14.54 K/uL (4.8-10.8)
[2021-01-07 08:08] LABS: BUN Creatinine Ratio 14.3 (10-20); Calcium 8.3 mg/dl (8.5-10.1); Creatinine Clr Calc Pharmacy 58.2 ml/min; Est GFR (African American) 66.4; Est GFR (Non-African American) 57.3; Magnesium 2.1 mg/dl (1.8-2.4); Potassium 3.3 mmol/L (3.5-5.1)
[2021-01-07 08:24] LABS: Phosphorus 1.3 mg/dl (2.5-4.9)
[2021-01-07] MEDS: ASPIRIN 81 MG ECTAB PO SCH (08:25)
[2021-01-07] MEDS: CEROVITE ADV FORMULA TAB PO SCH (08:25)
[2021-01-07] MEDS: ADVANCED PROBIOTIC 1250 MG CAPSULE PO SCH (08:26)
[2021-01-07] MEDS: RANOLAZINE 500 MG ER TAB PO SCH ×2 (08:26→19:59)
[2021-01-07] MEDS ORDERED: POTASSIUM PHOS 3 MMOL/1 ML INFUSION IV ONE (08:49)
[2021-01-07] MEDS ORDERED: POTASSIUM CHLORIDE CRTAB 20 MEQ TABCR PO ONE (08:49)
[2021-01-07] MEDS ORDERED: POTASSIUM PHOSPHATE 21 MMOL in SODIUM CHLORIDE 0.9% 500 ML IV ONE (09:15)
[2021-01-07] MEDS: ACETAMINOPHEN 325 MG TAB PO PRN (10:26)
[2021-01-07] MEDS ORDERED: LOPERAMIDE HCL 2 MG CAP PO PRN (11:12)
[2021-01-07] MEDS: CEFEPIME 2,000 MG in SYRINGE 0 ML IV SCH ×2 (11:35→23:27)
[2021-01-07] MEDS: LACTOBACILLUS ACIDOPHILUS 1 GM PACK PO SCH ×2 (12:29→16:47)
--- NOTE | 2021-01-07 14:56 | Hospitalist Progress Note ---
Date of Service January 07, 2021 Assessment & Plan (1) Sepsis: (2) Acidosis, lactic: (3) Complicated UTI (urinary tract infection): Patient is a 75 yr male with H/O CAD S/P CABG x4 in 2005, sinus node dysfunction status post pacemaker, HTN, prediabetes, history of DVT, thoracic ascending aortic aneurysm, BPH who presents to ED secondary to chills, UTI symptoms x3 days and recent prostate biopsy on 12/30/2020. Complicated UTI E. coli bacteremia:POA Lactic acidosis S/P Prostate biopsy by Dr. Schneider at [facility] on 12/30. (Was empirically was treated with IM gentamicin and oral ciprofloxacin) for elevated PSA -CTA DB:Moderate enlargement of the prostate. Minimal infiltration adjacent to the prostate and seminal vesicles is nonspecific and could be related to recent procedure or represent an infectious process. No fluid collection to suggest abscess or hematoma. Colonic diverticulosis without evidence for acute diverticulitis. No bowel obstruction. Blood Cx: 11/18: E. coli Urine culture E. coli Repeat blood cultures pending Empirically started on IV vancomycin, cefepime, Flagyl Received IV fluids Lactic acid levels normalized with IV fluids We will consult ID for input Possible Pneumonia Hypoxia Likely secondary to pulmonary edema, bilateral pleural effusion, atelectasis CXR:Mild interstitial pulmonary edema and small bilateral pleural effusions. Right greater than left bibasilar airspace opacities. This could be due to atelectasis or pneumonia. Covid screen negative Continue IV antibiotics as above We will give Lasix as needed Wean off of supplemental oxygen as able Check ECHO Diarrhea Secondary to antibiotics Stool for C. difficile negative Continue probiotics Imodium as needed Hypomagnesemia Hypokalemia Hypophosphatemia Likely due to GI loses and lasix Replete electrolytes as needed Monitor CAD S/P CABG x4 Sinus node dysfunction with permanent pacemaker in place follows [facility] cardiology Continue ASA, [place] Resume metoprolol Prediabetes HbA1c 5.7 10/2020 H/O DVT DVT prophylaxis SQ Lovenox Code Status Full Code Disposition Expected discharge home when medically stable Admission and Anticipated Discharge Date Admission Date: January 05, 2021 Subjective Patient is seen and examined at bedside States feeling very tired, has generalized weakness Also states having diarrhea-about 3 bowel movements per day Admits to having very poor appetite, associated nausea, shortness of breath on exertion Denies dysuria, hematuria, abdominal pain, chest pain, dizziness Offers no other complaints Review of Systems Review of Systems: All systems reviewed & are unremarkable except as noted in HPI & below Physical Exam Physical Exam: Physical Exam: Vitals signs as noted above General Appearance:Moderately built and nourished, no apparent distress Head: normocephalic, Atraumatic Eyes: normal inspection, EOMI Neck: supple, Trachea midline Respiratory/Chest: Normal breath sounds, B/L Basal Crackles Cardiovascular: S1, S2, No murmur Abdomen/GI:Soft, Non tender, Bowel sounds present Extremities/Musculoskelatal:normal inspection, no edema Neurologic/Psych:AAOX3, grossly no focal neurological deficits Skin: normal color, warm Results & Data Results & Data ([facility]) Vital Signs (Past 12 Hours) Vital Signs Temp Pulse Pulse Resp BP BP Pulse Ox 01/07/21 12:11 36.5 C 62 16 131/70 96 01/07/21 08:00 36.6 C 88 16 129/66 95 01/07/21 07:19 86 01/07/21 03:33 37.8 C H 86 18 127/78 92 Laboratory Results Short CBC 01/07/21 Range/Units 07:03 WBC 14.54 H (4.8-10.8) K/uL Hgb 11.9 L (14.0-18.0) g/dL Hct 33.1 L (42-52) % Plt Count 130 (130-400) K/uL BMP 01/07/21 07:03 Sodium 137 Potassium 3.3 L D Chloride 108 H Carbon Dioxide 20 L BUN 18 Creatinine 1.24 Glucose 125 H Calcium 8.3 L (1) Sepsis Sepsis acute organ dysfunction status: unspecified Sepsis type: sepsis due to unspecified organism Qualified Code(s): A41.9 - Sepsis, unspecified organism
[2021-01-07] MEDS ORDERED: FUROSEMIDE 20 MG in SYRINGE 0 ML IV ONE (15:00)
[2021-01-07] MEDS ORDERED: VANCOMYCIN TROUGH ONE (16:00)
[2021-01-07] MEDS: ENOXAPARIN INJ 40 MG/0.4 ML SYR SQ SCH (19:58)
[2021-01-08] MEDS: VANCOMYCIN HCL 1,000 MG in SODIUM CHLORIDE 0.9% 250 ML IV SCH (04:00)
[2021-01-08 07:40] LABS: Hematocrit (blood only) 32.2 % (42-52); Hemoglobin 11.7 g/dL (14.0-18.0); Mean Corpuscular Hemoglobin 31.8 pg (25-34); Mean Corpuscular Hgb Conc 36.3 g/dL (32-36); Mean Corpuscular Volume 87.5 fL (80-100); Mean Platelet Volume 9.7 fL (7.4-10.4); Platelet Count 153 K/uL (130-400); RDW Coefficient of Variation 14.3 % (11.5-14.5); RDW Standard Deviation 46.4 fL (36.4-46.3); Red Blood Count 3.68 M/uL (4.7-6.1); White Blood Count 9.75 K/uL (4.8-10.8)
[2021-01-08 08:13] LABS: BUN Creatinine Ratio 18.7 (10-20); Creatinine Clr Calc Pharmacy 63.9 ml/min; Est GFR (African American) 74.3; Est GFR (Non-African American) 64.1; Magnesium 2.1 mg/dl (1.8-2.4); Potassium 3.4 mmol/L (3.5-5.1)
[2021-01-08] MEDS: RANOLAZINE 500 MG ER TAB PO SCH ×2 (08:15→20:24)
[2021-01-08] MEDS: CEROVITE ADV FORMULA TAB PO SCH (08:15)
[2021-01-08] MEDS: ASPIRIN 81 MG ECTAB PO SCH (08:15)
[2021-01-08] MEDS: METOPROLOL SUCC 25MG EXT REL TAB PO SCH (08:16)
[2021-01-08] MEDS: LACTOBACILLUS ACIDOPHILUS 1 GM PACK PO SCH ×3 (08:16→16:19)
--- NOTE | 2021-01-08 08:21 | XRay Report ---
XR chest 1V portable CLINICAL HISTORY: Pleural effusion COMPARISON STUDY: 01/06/2021 FINDINGS: The heart remains enlarged. There is a left subclavian dual-chamber central venous pacemake r. There are persistent bilateral pleural effusions right greater than left. There are associated bas ilar airspace opacities right greater than left.[ IMPRESSION: Cardiomegaly and persistent bilateral pleural effusions right greater than left. There ar e persistent basilar airspace opacities, atelectatic versus infectious/inflammatory ACT 112: Negative or not required by law. Electronically signed by: Juan Pablo Rodriguez M.D. 01/08/2021 8:20 AM
[2021-01-08 08:27] LABS: Phosphorus 1.2 mg/dl (2.5-4.9)
[2021-01-08] MEDS ORDERED: POTASSIUM PHOS 3 MMOL/1 ML INFUSION IV ONE (08:40)
[2021-01-08] MEDS ORDERED: POTASSIUM CHLORIDE CRTAB 20 MEQ TABCR PO ONE (08:41)
[2021-01-08] MEDS ORDERED: POTASSIUM PHOSPHATE 21 MMOL in SODIUM CHLORIDE 0.9% 500 ML IV ONE (08:45)
[2021-01-08] MEDS ORDERED: FUROSEMIDE 40 MG in SYRINGE 0 ML IV SCH (09:00)
[2021-01-08] MEDS: cefTRIAXone SODIUM 2,000 MG in DEXTROSE 5% 50 ML IV SCH (09:17)
[2021-01-08] MEDS: DOXYCYCLINE HYCLATE 100 MG CAP PO SCH ×2 (09:18→20:24)
--- NOTE | 2021-01-08 09:48 | Cardiology Consultation ---
Date of Consultation January 08, 2021 Assessment & Plan (1) Volume overload: (2) CAD (coronary artery disease): (3) Gram-negative bacteremia: (4) Acidosis, lactic: (5) Complicated UTI (urinary tract infection): (6) Sinus node dysfunction: At this point I believe the patient is volume overloaded secondary to aggressive IV hydration in the setting of borderline sepsis. 2D echocardiogram unchanged with preserved LV systolic function. I believe the most prudent course of action at this point would be to proceed with IV diuresis. Which I will increase to Lasix 40 mg IV twice daily. Electrolytes to be followed closely and repleted as necessary. Continue current doses of metoprolol and Ranexa. Consideration may be given to addition of spironolactone prior to discharge. History of Present Illness Reason for Consultation: CHF Requesting Physician: Dr. Duarte Attending Physician: Jeff Duarte MD History of Present Illness The patient is a very pleasant 75-year-old gentleman who routinely follows with Giuliano Melara of our cardiology practice. He presented to [facility] on 01/05/2021 with complaints of UTI status post prostate biopsy. Upon presentation to the emergency department he was borderline septic and treated aggressively with IV fluids. He was then admitted to telemetry for antibiotic therapy. He received a total of 12 L of fluid on telemetry. With this he started developing little shortness of breath a few days ago. He states that whenever he tries to get up and walk he becomes significantly dyspneic. He is a little short of breath if he tries to lie flat. Denies chest pain, palpitations, lightheadedness, dizziness or syncope. Past medical history as per most recent outpatient cardiology note 1. Chronic ischemic heart disease 1. Status post 06/16/2006 off-pump coronary artery bypass grafting times 4 (left internal mammary artery to the left anterior descending artery, saphenous vein graft from the aorta to the ramus intermedius sequenced to the obtuse marginal artery, saphenous vein graft from the aorta to the diagonal artery). 2. Diagnostic cardiac catheterization performed by Dr. Olmos at [facility] in [place] on March 14, 2014 demonstrated an atretic INFANTE graft with moderate disease though no significant disease observed from the LMCA through the LAD. All other grafts were open. The new finding was that the mid RCA was occluded and not graftable. This was previously 50% at the time of CABG. This vessel was also noted to be well collateralized and did not appear to be a recent finding. 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 Medical therapy was recommended with the patient initially advised to start Imdur however he declined said therapy due to Viagra use. He was then started on Norvasc without improvement. In March 2014 the patient was started on Ranexa wit h considerable improvement in angina. 3. Presentation in October 2017 with new onset exertional chest discomfort, reduction in exercise tolerance. Diagnostic cardiac catheterization at [facility] on November 03, 2017 revealed findings were felt to be identical to the cardiac catheterization performed in 2013. No clear culprit for symptoms identified. The right coronary artery was felt to be a decent retrograde chronic total occlusion case if felt to be necessary though, again, the vessel was unchanged from 2013. 2. Paroxysmal atrial fibrillation/flutter present before CABG surgery and postoperatively. CHADS2 Score 0/6. [id number] Score 1 point. Patient adverse to anticoagulation. 3. Symptomatic bradycardia status post November 24, 2016 dual chamber pacemaker implantation complicated by left upper extremity deep venous duplex 4. Asymptomatic nonsustained ventricular tachycardia 5. Enlarged aortic root and proximal ascending thoracic aorta 6. Aortic and mitral regurgitation 7. Dyslipidemia with simvastatin previously discontinued secondary to significant bilateral knee pain, declining retrial of lipid lowering therapy.. 8. Stage III chronic kidney disease 9. BPH 10. Impotence 11. Reformed smoker. 12. + Family history of AAA Allergies Allergy/AdvReac Type Severity Reaction Status Date / Time [id number] Reductase AdvReac Intermediate MUSCLE Verified 01/05/21 11:29 Inhibitor ACHES Home Medications Medication Instructions Recorded Confirmed Type Glucosamine Chondroitin 1 cap PO BID 10/30/19 01/05/21 History Multivitamin 50 Plus 1 tab PO QAM 10/30/19 01/05/21 History metoprolol succinate 75 mg PO QAM 10/30/19 01/05/21 History ranolazine [Ranexa] 500 mg PO BID 10/30/19 01/05/21 History Prostagenix 3 tab PO DAILY 01/05/21 01/05/21 History aspirin 81 mg PO DAILY 01/05/21 01/05/21 History ibuprofen 200 mg PO Q6H PRN 01/05/21 01/05/21 History Patient History Medical History BPH (benign prostatic hyperplasia) Collapsed lung HX OF AT AGE 24 (REQUIRED CHEST TUBE) GERD (gastroesophageal reflux disease) Hx of atrial fibrillation, no current medication Hx of blood clots LEFT ARM S/P PACEMAKER IMPLANTED (ON COUMADIN THERAPY) Hypertension Macular hole CURRENTLY IN RT EYE Myocardial Infarction 2006 Pacemaker PLACED 4 YEARS AGO>A-FIB ([employer]) MONITORED BY DR. SANTAMARIA Surgical History H/O cardiac radiofrequency ablation 2008 History of appendectomy History of cardiac cath 2006 History of colonoscopy History of coronary artery bypass graft Dr Sumner, Off pump coronary artery bypass grafting x4 using INFANTE to LAD, reverse saphenous vein graft to diagonal, and sequential reverse saphenous vein graft to ramus intermedius and obtuse marginal; endoscopic vein harvesting 4 VESSELS AT [facility] 2006 History of herniorrhaphy X 3 REPAIRS (INGUINAL AREAS) History of tonsillectomy History of tooth extraction Hx of vasectomy S/P LASIK surgery of both eyes Family History Father , 77 Myocardial infarction Coronary heart disease Stroke Mother Myocardial infarction Coronary heart disease Social History Smoking Status: Former smoker Tobacco Type: Cigarettes packs per day: 1; Years Smoked: 10; Smoking End Date: 1967; Second Hand Exposure: No; Do You Dip or Chew Tobacco: No; Tobacco Cessation Education Requested by Patient: No Hx Alcohol Use: No Hx Substance Use: No Preferred Language: Swiss Communication Ability: Effective Business Liaison Manager Required: No Beliefs That Will Affect Care: None Current Living Situation: Family current occupational status: employed 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 No acute distress. HEENT: Normocephalic, atraumatic. Pupils equal, round and reactive to light and accommodation. Extraocular muscles are intact. Anicteric sclera. Moist mucous membranes. Neck: No JVD. No bruit. Cardiovascular: Regular. Positive S-4. Normal S-1 and S-2. No S-3. No murmurs or rubs. Pulmonary: Clear to auscultation B/L. No rales, rhonchi or wheezing Abdomen: Bowel sounds x 4, soft. No rebound, guarding or tenderness. No organomegaly. Extremities: No clubbing, cyanosis or edema. +2 pedal pulses bilaterally. Skin: Warm and dry. Results & Data ([facility]) Vital Signs (Past 12 Hours) Vital Signs Temp Pulse Pulse Resp BP Pulse Ox 01/08/21 07:36 74 01/08/21 07:27 37.2 C 88 20 129/73 91 01/08/21 03:55 37.8 C H 84 18 138/83 92 01/07/21 23:59 37.4 C 80 18 136/74 91
--- NOTE | 2021-01-08 16:11 | Hospitalist Progress Note ---
Date of Service January 08, 2021 Assessment & Plan (1) Sepsis: (2) Acidosis, lactic: (3) Complicated UTI (urinary tract infection): Patient is a 75 yr male with H/O CAD S/P CABG x4 in 2005, sinus node dysfunction status post pacemaker, HTN, prediabetes, history of DVT, thoracic ascending aortic aneurysm, BPH who presents to ED secondary to chills, UTI symptoms x3 days and recent prostate biopsy on 12/30/2020. Complicated UTI E. coli bacteremia:POA Lactic acidosis S/P Prostate biopsy by Dr. Schneider at [facility] on 12/30. (Was empirically was treated with IM gentamicin and oral ciprofloxacin) for elevated PSA -CTA DB:Moderate enlargement of the prostate. Minimal infiltration adjacent to the prostate and seminal vesicles is nonspecific and could be related to recent procedure or represent an infectious process. No fluid collection to suggest abscess or hematoma. Colonic diverticulosis without evidence for acute diverticulitis. No bowel obstruction. Blood Cx: 11/18: E. coli Urine culture E. coli Repeat blood cultures: No growth to date Empirically started on IV vancomycin, cefepime, Flagyl>> transition to IV Rocephin Received IV fluids Lactic acid levels normalized with IV fluids Appreciate ID Input Volume overload--Likely due to Aggressive IV fluids in setting of possible spesis Possible Pneumonia Hypoxia due to B/L Pleural effusion Likely secondary to pulmonary edema, bilateral pleural effusion, atelectasis CXR:Mild interstitial pulmonary edema and small bilateral pleural effusions. Right greater than left bibasilar airspace opacities. This could be due to atelectasis or pneumonia. Covid screen negative Continue IV antibiotics as above>> transition to IV Rocephin, doxycycline ECHO unchanged from prior Continue IV diuretics as per cardiology Appreciate cardiology input Monitor renal function, electrolytes Diarrhea Secondary to antibiotics Stool for C. difficile negative Continue probiotics Imodium as needed Slowly improving Hypomagnesemia Hypokalemia Hypophosphatemia Likely due to GI loses and lasix Replete electrolytes as needed Monitor CAD S/P CABG x4 Sinus node dysfunction with permanent pacemaker in place follows [facility] cardiology Continue ASA, Ranexa Resume metoprolol Prediabetes HbA1c 5.7 10/2020 H/O DVT DVT prophylaxis SQ Lovenox Code Status Full Code Disposition Expected discharge home when medically stable Admission and Anticipated Discharge Date Admission Date: January 05, 2021 Subjective Patient is seen and examined at bedside States feeling better today Decreased dyspnea, generalized weakness Less Diarrhea today Appetite slowly improving Discussed with Cardiology today Denies dysuria, hematuria, abdominal pain, chest pain, dizziness Review of Systems Review of Systems: All systems reviewed & are unremarkable except as noted in HPI & below Physical Exam Physical Exam: Physical Exam: Vitals signs as noted above General Appearance:Moderately built and nourished, no apparent distress Head: normocephalic, Atraumatic Eyes: normal inspection, EOMI Neck: supple, Trachea midline Respiratory/Chest: Normal breath sounds, B/L Basal Crackles Cardiovascular: S1, S2, No murmur Abdomen/GI:Soft, Non tender, Bowel sounds present Extremities/Musculoskelatal:normal inspection, no edema Neurologic/Psych:AAOX3, grossly no focal neurological deficits Skin: normal color, warm Results & Data Results & Data ([facility]) Vital Signs (Past 12 Hours) Vital Signs Temp Pulse Pulse Resp BP Pulse Ox 01/08/21 15:29 36.7 C 65 19 130/87 97 01/08/21 11:34 37.0 C 70 18 126/84 96 01/08/21 07:36 74 01/08/21 07:27 37.2 C 88 20 129/73 91 Laboratory Results Short CBC 01/08/21 Range/Units 06:59 WBC 9.75 (4.8-10.8) K/uL Hgb 11.7 L (14.0-18.0) g/dL Hct 32.2 L (42-52) % Plt Count 153 (130-400) K/uL BMP 01/08/21 06:59 Sodium 136 Potassium 3.4 L Chloride 107 Carbon Dioxide 24 BUN 21 H Creatinine 1.13 Glucose 113 H Calcium 8.0 L (1) Sepsis Sepsis acute organ dysfunction status: unspecified Sepsis type: sepsis due to unspecified organism Qualified Code(s): A41.9 - Sepsis, unspecified organism
[2021-01-08] MEDS: FUROSEMIDE 40 MG in SYRINGE 0 ML IV SCH (16:19)
[2021-01-08] MEDS: ENOXAPARIN INJ 40 MG/0.4 ML SYR SQ SCH (20:24)
[2021-01-09 06:17] LABS: Hematocrit (blood only) 32.2 % (42-52); Hemoglobin 11.7 g/dL (14.0-18.0); Mean Corpuscular Hemoglobin 31.8 pg (25-34); Mean Corpuscular Hgb Conc 36.3 g/dL (32-36); Mean Corpuscular Volume 87.5 fL (80-100); Mean Platelet Volume 9.4 fL (7.4-10.4); Platelet Count 152 K/uL (130-400); RDW Coefficient of Variation 14.1 % (11.5-14.5); RDW Standard Deviation 45.9 fL (36.4-46.3); Red Blood Count 3.68 M/uL (4.7-6.1); White Blood Count 10.73 K/uL (4.8-10.8)
[2021-01-09 06:52] LABS: Calcium 8.2 mg/dl (8.5-10.1); Creatinine Clr Calc Pharmacy 68.8 ml/min; Est GFR (African American) 81.2; Est GFR (Non-African American) 70.1; Potassium 3.3 mmol/L (3.5-5.1)
[2021-01-09 07:04] LABS: Phosphorus 2.2 mg/dl (2.5-4.9)
[2021-01-09] MEDS: ASPIRIN 81 MG ECTAB PO SCH (09:25)
[2021-01-09] MEDS: CEROVITE ADV FORMULA TAB PO SCH (09:25)
[2021-01-09] MEDS: FUROSEMIDE 40 MG in SYRINGE 0 ML IV SCH ×2 (09:25→17:37)
[2021-01-09] MEDS: LACTOBACILLUS ACIDOPHILUS 1 GM PACK PO SCH ×3 (09:25→17:37)
[2021-01-09] MEDS: RANOLAZINE 500 MG ER TAB PO SCH ×2 (09:25→20:05)
[2021-01-09] MEDS: METOPROLOL SUCC 25MG EXT REL TAB PO SCH (09:26)
[2021-01-09] MEDS: DOXYCYCLINE HYCLATE 100 MG CAP PO SCH ×2 (09:26→20:05)
[2021-01-09] MEDS ORDERED: POTASSIUM CHLORIDE CRTAB 20 MEQ TABCR PO ONE (09:31)
[2021-01-09] MEDS ORDERED: POTASSIUM PHOS 3 MMOL/1 ML INFUSION IV ONE (09:33)
[2021-01-09] MEDS ORDERED: POTASSIUM PHOSPHATE 9 MMOL in SODIUM CHLORIDE 0.9% 250 ML IV ONE (09:45)
[2021-01-09] MEDS: cefTRIAXone SODIUM 2,000 MG in DEXTROSE 5% 50 ML IV SCH (10:14)
--- NOTE | 2021-01-09 12:38 | Cardiology Progress Note ---
Date of Service January 09, 2021 Assessment & Plan (1) Volume overload: (2) CAD (coronary artery disease): (3) Gram-negative bacteremia: (4) Acidosis, lactic: (5) Complicated UTI (urinary tract infection): (6) Sinus node dysfunction: At this point I believe the patient is volume overloaded secondary to aggressive IV hydration in the setting of borderline sepsis. 2D echocardiogram unchanged with preserved LV systolic function. Is responding well to IV diuretics. -2 L overnight. Continue current Lasix dose. Follow volume status clinically. Electrolytes to be followed closely and repleted as necessary. Continue current doses of metoprolol and Ranexa. Consideration may be given to addition of spironolactone prior to discharge. Admission and Anticipated Discharge Date Admission Date: January 05, 2021 Subjective Patient seen and examined, chart reviewed. States he is feeling better today. Dyspnea and fatigue are slowly improving. Continues to diurese well. Denies chest pain, palpitations, lightheadedness or dizziness. Telemetry reviewed: Normal sinus rhythm without arrhythmia or significant ectopy. Review of Systems Review of Systems: All systems reviewed & are unremarkable except as noted in HPI & below Physical Exam Physical Exam: General: Awake, alert and oriented x 3. No acute distress. HEENT: Normocephalic, atraumatic. Pupils equal, round and reactive to light and accommodation. Extraocular muscles are intact. Anicteric sclera. Moist mucous membranes. Neck: No JVD. No bruit. Cardiovascular: Regular. Positive S-4. Normal S-1 and S-2. No S-3. No murmurs or rubs. Pulmonary: Clear to auscultation B/L. No rales, rhonchi or wheezing Abdomen: Bowel sounds x 4, soft. No rebound, guarding or tenderness. No organomegaly. Extremities: No clubbing, cyanosis or edema. +2 pedal pulses bilaterally. Skin: Warm and dry. Results & Data ([facility]) Vital Signs (Past 12 Hours) Vital Signs Temp Pulse Pulse Resp BP BP Pulse Ox 01/09/21 11:45 36.7 C 73 19 117/70 97 01/09/21 08:00 66 01/09/21 07:34 36.7 C 59 L 18 125/71 97 01/09/21 04:05 37.0 C 71 19 134/84 96
--- NOTE | 2021-01-09 16:06 | Electrocardiogram Report ---
Test Reason : Blood Pressure : / mmHG Vent. Rate : 061 BPM Atrial Rate : 061 BPM P-R Int : 198 ms QRS Dur : 164 ms QT Int : 490 ms P-R-T Axes : 081 -81 107 degrees QTc Int : 493 ms Poor data quality, interpretation may be adversely affected Atrial-sensed ventricular-paced rhythm Abnormal ECG When compared with ECG of 24-NOV-2016 13:35, Electronic ventricular pacemaker has replaced Electronic atrial pacemaker Confirmed by Stanford Jules ([id number]) on 01/09/2021 4:06:20 PM Referred By: REFERRED SELF Confirmed By:Darrius Jules
--- NOTE | 2021-01-09 19:04 | Hospitalist Progress Note ---
Date of Service January 09, 2021 Assessment & Plan (1) Sepsis: (2) Acidosis, lactic: (3) Complicated UTI (urinary tract infection): Patient is a 75 yr male with H/O CAD S/P CABG x4 in 2005, sinus node dysfunction status post pacemaker, HTN, prediabetes, history of DVT, thoracic ascending aortic aneurysm, BPH who presents to ED secondary to chills, UTI symptoms x3 days and recent prostate biopsy on 12/30/2020. Complicated UTI E. coli bacteremia:POA Lactic acidosis S/P Prostate biopsy by Dr. Schneider at [facility] on 12/30. (Was empirically was treated with IM gentamicin and oral ciprofloxacin) for elevated PSA -CTA DB:Moderate enlargement of the prostate. Minimal infiltration adjacent to the prostate and seminal vesicles is nonspecific and could be related to recent procedure or represent an infectious process. No fluid collection to suggest abscess or hematoma. Colonic diverticulosis without evidence for acute diverticulitis. No bowel obstruction. Blood Cx: 11/18: E. coli Urine culture E. coli Repeat blood cultures: No growth to date Empirically started on IV vancomycin, cefepime, Flagyl>> transitioned to IV Rocephin Received IV fluids Lactic acid levels normalized with IV fluids Appreciate ID Input Continue current management Volume overload--Likely due to Aggressive IV fluids in setting of possible sepsis Possible Pneumonia Hypoxia due to B/L Pleural effusion Likely secondary to pulmonary edema, bilateral pleural effusion, atelectasis CXR:Mild interstitial pulmonary edema and small bilateral pleural effusions. Right greater than left bibasilar airspace opacities. This could be due to atelectasis or pneumonia. Covid screen negative Continue IV antibiotics as above>> transition to IV Rocephin, doxycycline ECHO unchanged from prior Continue IV diuretics as per cardiology Appreciate cardiology input Monitor renal function, electrolytes Wean off of supplemental oxygen as able Monitor I's and O's, daily weight Diarrhea Secondary to antibiotics Stool for C. difficile negative Continue probiotics Imodium as needed Improving Hypomagnesemia Hypokalemia Hypophosphatemia Likely due to GI loses and lasix Replete electrolytes as needed Monitor CAD S/P CABG x4 Sinus node dysfunction with permanent pacemaker in place follows [facility] cardiology Continue ASA, Ranexa Resume metoprolol Prediabetes HbA1c 5.7 10/2020 H/O DVT DVT prophylaxis SQ Lovenox Code Status Full Code Disposition Expected discharge home when medically stable Admission and Anticipated Discharge Date Admission Date: January 05, 2021 Subjective Patient is seen and examined at bedside Significant improvement in dyspnea No new complaints Semiformed no BM today Denies chest pain, dysuria, hematuria, abdominal pain, dizziness Review of Systems Review of Systems: All systems reviewed & are unremarkable except as noted in HPI & below Physical Exam Physical Exam: Physical Exam: Vitals signs as noted above General Appearance:Moderately built and nourished, no apparent distress Head: normocephalic, Atraumatic Eyes: normal inspection, EOMI Neck: supple, Trachea midline Respiratory/Chest: Normal breath sounds, minimal basal Crackles Cardiovascular: S1, S2, No murmur Abdomen/GI:Soft, Non tender, Bowel sounds present Extremities/Musculoskelatal:normal inspection, no edema Neurologic/Psych:AAOX3, grossly no focal neurological deficits Skin: normal color, warm Results & Data Results & Data ([facility]) Vital Signs (Past 12 Hours) Vital Signs Temp Pulse Pulse Resp BP BP Pulse Ox 01/09/21 15:39 36.7 C 62 19 130/80 97 01/09/21 11:45 36.7 C 73 19 117/70 97 01/09/21 08:00 66 01/09/21 07:34 36.7 C 59 L 18 125/71 97 Laboratory Results Short CBC 01/09/21 Range/Units 05:58 WBC 10.73 (4.8-10.8) K/uL Hgb 11.7 L (14.0-18.0) g/dL Hct 32.2 L (42-52) % Plt Count 152 (130-400) K/uL BMP 01/09/21 05:58 Sodium 137 Potassium 3.3 L Chloride 105 Carbon Dioxide 29 BUN 23 H Creatinine 1.05 Glucose 112 H Calcium 8.2 L (1) Sepsis Sepsis acute organ dysfunction status: unspecified Sepsis type: sepsis due to unspecified organism Qualified Code(s): A41.9 - Sepsis, unspecified organism
[2021-01-09] MEDS: POTASSIUM CHLORIDE 10 MEQ TABCR PO SCH (20:05)
[2021-01-09] MEDS: ENOXAPARIN INJ 40 MG/0.4 ML SYR SQ SCH (20:06)
[2021-01-10 07:49] LABS: BUN Creatinine Ratio 17.5 (10-20); Calcium 8.5 mg/dl (8.5-10.1); Creatinine Clr Calc Pharmacy 63.9 ml/min; Est GFR (African American) 74.3; Est GFR (Non-African American) 64.1; Magnesium 1.9 mg/dl (1.8-2.4); Potassium 3.4 mmol/L (3.5-5.1)
[2021-01-10 07:50] LABS: Phosphorus 2.5 mg/dl (2.5-4.9)
[2021-01-10] MEDS: cefTRIAXone SODIUM 2,000 MG in DEXTROSE 5% 50 ML IV SCH (08:14)
[2021-01-10] MEDS: FUROSEMIDE 40 MG in SYRINGE 0 ML IV SCH (08:14)
[2021-01-10] MEDS: CEROVITE ADV FORMULA TAB PO SCH (08:15)
[2021-01-10] MEDS: LACTOBACILLUS ACIDOPHILUS 1 GM PACK PO SCH ×3 (08:15→16:39)
[2021-01-10] MEDS: POTASSIUM CHLORIDE 10 MEQ TABCR PO SCH (08:15)
[2021-01-10] MEDS: RANOLAZINE 500 MG ER TAB PO SCH ×2 (08:15→20:14)
[2021-01-10] MEDS: DOXYCYCLINE HYCLATE 100 MG CAP PO SCH ×2 (08:15→20:14)
[2021-01-10] MEDS: METOPROLOL SUCC 25MG EXT REL TAB PO SCH (08:15)
[2021-01-10] MEDS: ASPIRIN 81 MG ECTAB PO SCH (08:16)
[2021-01-10] MEDS ORDERED: POTASSIUM CHLORIDE CRTAB 20 MEQ TABCR PO ONE (09:15)
--- NOTE | 2021-01-10 12:16 | Cardiology Progress Note ---
Date of Service January 10, 2021 Assessment & Plan (1) Volume overload: I believe the patient is euvolemic and we can discontinue the IV Lasix. I will give him 1 additional dose of p.o. Lasix tomorrow. (2) CAD (coronary artery disease): (3) Gram-negative bacteremia: Antibiotic per medicine. (4) Acidosis, lactic: (5) Complicated UTI (urinary tract infection): (6) Sinus node dysfunction: The patient the patient has a permanent pacemaker. Admission and Anticipated Discharge Date Admission Date: January 05, 2021 Subjective Patient is clinically stable and feeling well. No new complaints today. Review of Systems Review of Systems: All systems reviewed & are unremarkable except as noted in Subjective Physical Exam Physical Exam: General: no acute distress and stated age Head: normocephalic, no masses, lesions, tenderness or abnormalities Eyes: conjunctiva are pink and non-injected, sclera clear Neck: supple, no adenopathy, no bruits, normal jugular venous pulse, no hepatojugular reflux Chest: normal shape and normal respiratory effort Lungs: clear to auscultation and percussion Cardiac Exam: - regular rate & rhythm, no murmurs gallops or rubs - normal S1, normal S2 Pulses: 2(+) throughout Abdomen: abdomen soft, non-tender, no abnormal masses and no hepatosplenomegaly Musculoskeletal: no gait disturbance, no joint inflammation, no deforming arthritis Extremities: no edema and no cyanosis Neuro: grossly normal exam [facility] Vital Signs (Past 12 Hours) Vital Signs Temp Pulse Resp BP Pulse Ox 01/10/21 11:35 36.7 C 60 18 118/66 96 01/10/21 07:05 37.1 C 67 17 124/73 92 01/10/21 03:27 37.2 C 73 20 147/82 H 92 Laboratory Results Laboratory Results - last 24 hr 01/10/21 06:37 Sodium 135 L Potassium 3.4 L Chloride 100 Carbon Dioxide 30 Anion Gap 5.0 BUN 20 H Creatinine 1.13 Est Cr Clr Drug Dosing 63.9 Est GFR ( Amer) 74.3 Est GFR (Non-Af Amer) 64.1 BUN/Creatinine Ratio 17.5 Glucose 113 H Calcium 8.5 Phosphorus 2.5 Magnesium 1.9 Diagnostic Findings Maintaining sinus rhythm on telemetry. Medications Administered Current Inpatient Medications Acetaminophen (Acetaminophen 325 Mg Tab) 650 mg PO Q4H PRN PRN Reason: Pain or Fever Stop: 02/04/21 16:24 Last Admin: 01/07/21 10:26 Dose: 650 mg Documented by: Al Hydrox/Mg Hydrox/Simethicone (Aluminum/Magnesium Susp 30 Ml Udc) 15 ml PO Q4H PRN PRN Reason: Dyspepsia Stop: 02/04/21 16:24 Aspirin (Aspirin 81 Mg Ectab) 81 mg PO DAILY [facility] Stop: 02/05/21 08:59 Last Admin: 01/10/21 08:16 Dose: 81 mg Documented by: Doxycycline Hyclate (Doxycycline Hyclate 100 Mg Cap) 100 mg PO BID [facility] Stop: 01/15/21 08:59 Last Admin: 01/10/21 08:15 Dose: 100 mg Documented by: Enoxaparin Sodium (Enoxaparin Inj 40 Mg/0.4 Ml Syr) 40 mg SQ Q24H [facility] Stop: 02/04/21 21:59 Last Admin: 01/09/21 20:06 Dose: Not Given Documented by: Furosemide (Furosemide 40 Mg Tab) 40 mg PO QAM [facility] Stop: 02/10/21 08:59 Ceftriaxone Sodium 2,000 mg/ (Dextrose) 70 mls @ 100 mls/hr IV DAILY@0900 [facility]; Protocol Stop: 01/18/21 09:29 Last Infusion: 01/10/21 08:58 Dose: Infused Documented by: Lactobacillus Acidophilus (Lactobacillus Acidophilus 1 Gm Pack) 1 gm PO TIDM [facility] Stop: 02/06/21 11:59 Last Admin: 01/10/21 11:56 Dose: 1 gm Documented by: Loperamide HCl (Loperamide Hcl 2 Mg Cap) 2 mg PO Q6H PRN PRN Reason: Diarrhea Stop: 02/06/21 11:11 Last Admin: 01/07/21 12:29 Dose: 2 mg Documented by: Magnesium Hydroxide (Magnesium Hydroxide Susp 30 Ml Udc) 30 ml PO Q12H PRN PRN Reason: Constipation Stop: 02/04/21 16:24 Metoprolol Succinate (Metoprolol Succ 25mg Ext Rel Tab) 75 mg PO QAM [facility] Stop: 02/07/21 08:59 Last Admin: 01/10/21 08:15 Dose: 75 mg Documented by: Multivitamins/Minerals (Cerovite Adv Formula Tab) 1 tab PO QAM [facility] Stop: 02/05/21 08:59 Last Admin: 01/10/21 08:15 Dose: 1 tab Documented by: Ondansetron HCl (Ondansetron Inj 2 Mg/Ml 2 Ml Vial) 4 mg IV Q6H PRN PRN Reason: Nausea Stop: 02/04/21 16:24 Last Admin: 01/05/21 19:35 Dose: 4 mg Documented by: Polyethylene Glycol (Polyethylene (Miralax) 17 Gm Pack) 17 gm PO DAILY PRN PRN Reason: Constipation Stop: 02/04/21 16:24 Potassium Chloride (Potassium Chloride Crtab 20 Meq Tabcr) 20 meq PO BID [facility] Stop: 02/09/21 20:59 Ranolazine (Ranolazine 500 Mg Er Tab) 500 mg PO BID [facility] Stop: 02/04/21 20:59 Last Admin: 01/10/21 08:15 Dose: 500 mg Documented by:
--- NOTE | 2021-01-10 17:23 | Hospitalist Progress Note ---
Date of Service January 10, 2021 Assessment & Plan (1) Sepsis: (2) Acidosis, lactic: (3) Complicated UTI (urinary tract infection): Patient is a 75 yr male with H/O CAD S/P CABG x4 in 2005, sinus node dysfunction status post pacemaker, HTN, prediabetes, history of DVT, thoracic ascending aortic aneurysm, BPH who presents to ED secondary to chills, UTI symptoms x3 days and recent prostate biopsy on 12/30/2020. Complicated UTI E. coli bacteremia:POA Lactic acidosis S/P Prostate biopsy by Dr. Schneider at [facility] on 12/30. (Was empirically was treated with IM gentamicin and oral ciprofloxacin) for elevated PSA -CTA DB:Moderate enlargement of the prostate. Minimal infiltration adjacent to the prostate and seminal vesicles is nonspecific and could be related to recent procedure or represent an infectious process. No fluid collection to suggest abscess or hematoma. Colonic diverticulosis without evidence for acute diverticulitis. No bowel obstruction. Blood Cx: 11/18: E. coli Urine culture E. coli Repeat blood cultures: No growth to date Empirically started on IV vancomycin, cefepime, Flagyl>> transitioned to IV Rocephin Received IV fluids Lactic acid levels normalized with IV fluids Appreciate ID Input Volume overload--Likely due to Aggressive IV fluids in setting of possible sepsis Possible Pneumonia Hypoxia due to B/L Pleural effusion Likely secondary to pulmonary edema, bilateral pleural effusion, atelectasis CXR:Mild interstitial pulmonary edema and small bilateral pleural effusions. Right greater than left bibasilar airspace opacities. This could be due to atelectasis or pneumonia. Covid screen negative Continue IV antibiotics as above>> transition to IV Rocephin, doxycycline ECHO unchanged from prior Received IV lasix Appreciate cardiology input Monitor renal function, electrolytes Weaned off of supplemental oxygen Monitor I's and O's, daily weight Volume status much improved IV diuretics discontinued Will be started on p.o. Lasix tomorrow Diarrhea Secondary to antibiotics Stool for C. difficile negative Continue probiotics Imodium as needed Improving Hypomagnesemia Hypokalemia Hypophosphatemia Likely due to GI loses and lasix Replete electrolytes as needed Monitor CAD S/P CABG x4 Sinus node dysfunction with permanent pacemaker in place follows [facility] cardiology Continue ASA, Ranexa Resume metoprolol Prediabetes HbA1c 5.7 10/2020 H/O DVT DVT prophylaxis SQ Lovenox Code Status Full Code Disposition Expected discharge home when medically stable Admission and Anticipated Discharge Date Admission Date: January 05, 2021 Subjective Patient is seen and examined at bedside States feeling a lot better today No new complaints IV diuretics discontinued Appetite improving Volume status much improved Denies chest pain, dysuria, hematuria, abdominal pain, dizziness Review of Systems Review of Systems: All systems reviewed & are unremarkable except as noted in HPI & below Physical Exam Physical Exam: Physical Exam: Vitals signs as noted above General Appearance:Moderately built and nourished, no apparent distress Head: normocephalic, Atraumatic Eyes: normal inspection, EOMI Neck: supple, Trachea midline Respiratory/Chest: Normal breath sounds, minimal basal Crackles Cardiovascular: S1, S2, No murmur Abdomen/GI:Soft, Non tender, Bowel sounds present Extremities/Musculoskelatal:normal inspection, no edema Neurologic/Psych:AAOX3, grossly no focal neurological deficits Skin: normal color, warm Results & Data Results & Data ([facility]) Vital Signs (Past 12 Hours) Vital Signs Temp Pulse Resp BP BP Pulse Ox 01/10/21 15:38 37.0 C 61 18 118/71 96 01/10/21 11:35 36.7 C 60 18 118/66 96 01/10/21 07:05 37.1 C 67 17 124/73 92 Laboratory Results [facility] 01/10/21 06:37 Sodium 135 L Potassium 3.4 L Chloride 100 Carbon Dioxide 30 BUN 20 H Creatinine 1.13 Glucose 113 H Calcium 8.5 (1) Sepsis Sepsis acute organ dysfunction status: unspecified Sepsis type: sepsis due to unspecified organism Qualified Code(s): A41.9 - Sepsis, unspecified organism
[2021-01-10] MEDS: POTASSIUM CHLORIDE CRTAB 20 MEQ TABCR PO SCH (20:14)
[2021-01-10] MEDS: ENOXAPARIN INJ 40 MG/0.4 ML SYR SQ SCH (20:15)
[2021-01-11 07:49] LABS: Hematocrit (blood only) 32.6 % (42-52); Hemoglobin 11.6 g/dL (14.0-18.0); Mean Corpuscular Hemoglobin 31.7 pg (25-34); Mean Corpuscular Hgb Conc 35.6 g/dL (32-36); Mean Corpuscular Volume 89.1 fL (80-100); Mean Platelet Volume 9.6 fL (7.4-10.4); Platelet Count 208 K/uL (130-400); RDW Standard Deviation 45.9 fL (36.4-46.3); Red Blood Count 3.66 M/uL (4.7-6.1)
[2021-01-11] MEDS: RANOLAZINE 500 MG ER TAB PO SCH ×2 (08:02→20:20)
[2021-01-11] MEDS: METOPROLOL SUCC 25MG EXT REL TAB PO SCH (08:02)
[2021-01-11] MEDS: ASPIRIN 81 MG ECTAB PO SCH (08:02)
[2021-01-11] MEDS: DOXYCYCLINE HYCLATE 100 MG CAP PO SCH ×2 (08:02→20:21)
[2021-01-11] MEDS: POTASSIUM CHLORIDE CRTAB 20 MEQ TABCR PO SCH (08:02)
[2021-01-11] MEDS: LACTOBACILLUS ACIDOPHILUS 1 GM PACK PO SCH ×3 (08:02→16:52)
[2021-01-11] MEDS: CEROVITE ADV FORMULA TAB PO SCH (08:02)
[2021-01-11] MEDS: cefTRIAXone SODIUM 2,000 MG in DEXTROSE 5% 50 ML IV SCH (08:06)
[2021-01-11 08:39] LABS: BUN Creatinine Ratio 14.6 (10-20); Calcium 9.2 mg/dl (8.5-10.1); Creatinine Clr Calc Pharmacy 70.8 ml/min; Est GFR (African American) 84.1; Est GFR (Non-African American) 72.6; Phosphorus 3.1 mg/dl (2.5-4.9); Potassium 3.5 mmol/L (3.5-5.1)
[2021-01-11] MEDS ORDERED: FUROSEMIDE 40 MG TAB PO SCH (09:00)
--- NOTE | 2021-01-11 12:21 | Cardiology Progress Note ---
Date of Service January 11, 2021 Assessment & Plan (1) Volume overload: The patient is euvolemic. He was not on Lasix as an outpatient and therefore discontinued the diuretic. From a cardiac standpoint he can be discharged per the medicine service. Patient does have a follow-up appointment already scheduled through our clinic. (2) CAD (coronary artery disease): (3) Gram-negative bacteremia: Antibiotic per medicine. (4) Acidosis, lactic: (5) Complicated UTI (urinary tract infection): (6) Sinus node dysfunction: The patient the patient has a permanent pacemaker. Admission and Anticipated Discharge Date Admission Date: January 05, 2021 Subjective The patient had an uneventful night and no ongoing cardiac complaints. Review of Systems Review of Systems: All systems reviewed & are unremarkable except as noted in Subjective Physical Exam Physical Exam: General: no acute distress and stated age Head: normocephalic, no masses, lesions, tenderness or abnormalities Eyes: conjunctiva are pink and non-injected, sclera clear Neck: supple, no adenopathy, no bruits, normal jugular venous pulse, no hepatojugular reflux Chest: normal shape and normal respiratory effort Lungs: clear to auscultation and percussion Cardiac Exam: - regular rate & rhythm, no murmurs gallops or rubs - normal S1, normal S2 Pulses: 2(+) throughout Abdomen: abdomen soft, non-tender, no abnormal masses and no hepatosplenomegaly Musculoskeletal: no gait disturbance, no joint inflammation, no deforming arthritis Extremities: no edema and no cyanosis Neuro: grossly normal exam Results & Data ([facility]) Vital Signs (Past 12 Hours) Vital Signs Temp Pulse Resp BP BP Pulse Ox 01/11/21 11:31 36.7 C 63 18 125/77 94 01/11/21 07:26 36.7 C 68 19 129/74 93 01/11/21 04:00 36.9 C 64 20 133/74 97 Laboratory Results Laboratory Results - last 24 hr 01/11/21 01/11/21 06:30 06:30 WBC 9.90 RBC 3.66 L Hgb 11.6 L Hct 32.6 L MCV 89.1 MCH 31.7 MCHC 35.6 RDW Std Deviation 45.9 RDW Coeff of Valentín 14.0 Plt Count 208 MPV 9.6 Sodium 134 L Potassium 3.5 Chloride 101 Carbon Dioxide 29 Anion Gap 5.0 BUN 15 Creatinine 1.02 Est Cr Clr Drug Dosing 70.8 Est GFR ( Amer) 84.1 Est GFR (Non-Af Amer) 72.6 BUN/Creatinine Ratio 14.6 Glucose 93 Calcium 9.2 Phosphorus 3.1 Medications Administered Current Inpatient Medications Acetaminophen (Acetaminophen 325 Mg Tab) 650 mg PO Q4H PRN PRN Reason: Pain or Fever Stop: 02/04/21 16:24 Last Admin: 01/07/21 10:26 Dose: 650 mg Documented by: Al Hydrox/Mg Hydrox/Simethicone (Aluminum/Magnesium Susp 30 Ml Udc) 15 ml PO Q4H PRN PRN Reason: Dyspepsia Stop: 02/04/21 16:24 Aspirin (Aspirin 81 Mg Ectab) 81 mg PO DAILY [facility] Stop: 02/05/21 08:59 Last Admin: 01/11/21 08:02 Dose: 81 mg Documented by: Doxycycline Hyclate (Doxycycline Hyclate 100 Mg Cap) 100 mg PO BID [facility] Stop: 01/15/21 08:59 Last Admin: 01/11/21 08:02 Dose: 100 mg Documented by: Enoxaparin Sodium (Enoxaparin Inj 40 Mg/0.4 Ml Syr) 40 mg SQ Q24H [facility] Stop: 02/04/21 21:59 Last Admin: 01/10/21 20:15 Dose: Not Given Documented by: Ceftriaxone Sodium 2,000 mg/ (Dextrose) 70 mls @ 100 mls/hr IV DAILY@0900 [facility]; Protocol Stop: 01/18/21 09:29 Last Infusion: 01/11/21 08:55 Dose: Infused Documented by: Lactobacillus Acidophilus (Lactobacillus Acidophilus 1 Gm Pack) 1 gm PO TIDM [facility] Stop: 02/06/21 11:59 Last Admin: 01/11/21 11:53 Dose: 1 gm Documented by: Loperamide HCl (Loperamide Hcl 2 Mg Cap) 2 mg PO Q6H PRN PRN Reason: Diarrhea Stop: 02/06/21 11:11 Last Admin: 01/07/21 12:29 Dose: 2 mg Documented by: Magnesium Hydroxide (Magnesium Hydroxide Susp 30 Ml Udc) 30 ml PO Q12H PRN PRN Reason: Constipation Stop: 02/04/21 16:24 Metoprolol Succinate (Metoprolol Succ 25mg Ext Rel Tab) 75 mg PO QAM [facility] Stop: 02/07/21 08:59 Last Admin: 01/11/21 08:02 Dose: 75 mg Documented by: Multivitamins/Minerals (Cerovite Adv Formula Tab) 1 tab PO QAM [facility] Stop: 02/05/21 08:59 Last Admin: 01/11/21 08:02 Dose: 1 tab Documented by: Ondansetron HCl (Ondansetron Inj 2 Mg/Ml 2 Ml Vial) 4 mg IV Q6H PRN PRN Reason: Nausea Stop: 02/04/21 16:24 Last Admin: 01/05/21 19:35 Dose: 4 mg Documented by: Polyethylene Glycol (Polyethylene (Miralax) 17 Gm Pack) 17 gm PO DAILY PRN PRN Reason: Constipation Stop: 02/04/21 16:24 Ranolazine (Ranolazine 500 Mg Er Tab) 500 mg PO BID [facility] Stop: 02/04/21 20:59 Last Admin: 01/11/21 08:02 Dose: 500 mg Documented by:
--- NOTE | 2021-01-11 17:52 | Hospitalist Progress Note ---
Date of Service January 11, 2021 Assessment & Plan (1) Sepsis: (2) Acidosis, lactic: (3) Complicated UTI (urinary tract infection): Patient is a 75 yr male with H/O CAD S/P CABG x4 in 2005, sinus node dysfunction status post pacemaker, HTN, prediabetes, history of DVT, thoracic ascending aortic aneurysm, BPH who presents to ED secondary to chills, UTI symptoms x3 days and recent prostate biopsy on 12/30/2020. Complicated UTI E. coli bacteremia:POA Lactic acidosis S/P Prostate biopsy by Dr. Schneider at [facility] on 12/30. (Was empirically was treated with IM gentamicin and oral ciprofloxacin) for elevated PSA -CTA DB:Moderate enlargement of the prostate. Minimal infiltration adjacent to the prostate and seminal vesicles is nonspecific and could be related to recent procedure or represent an infectious process. No fluid collection to suggest abscess or hematoma. Colonic diverticulosis without evidence for acute diverticulitis. No bowel obstruction. Blood Cx: 11/18: E. coli Urine culture E. coli Repeat blood cultures: No growth to date Empirically started on IV vancomycin, cefepime, Flagyl>> transitioned to IV Rocephin Received IV fluids Lactic acid levels normalized with IV fluids Appreciate ID Input Transition to p.o. antibiotics upon discharge Recheck procalcitonin in a.m. Volume overload--Likely due to Aggressive IV fluids in setting of possible sepsis Possible Pneumonia Hypoxia due to B/L Pleural effusion Likely secondary to pulmonary edema, bilateral pleural effusion, atelectasis CXR:Mild interstitial pulmonary edema and small bilateral pleural effusions. Right greater than left bibasilar airspace opacities. This could be due to atelectasis or pneumonia. Covid screen negative Continue IV antibiotics as above>> transition to IV Rocephin, doxycycline ECHO unchanged from prior Received IV lasix Appreciate cardiology input Monitor renal function, electrolytes Weaned off of supplemental oxygen Monitor I's and O's, daily weight Volume status much improved IV diuretics discontinued Has follow-up with cardiology as outpatient Diarrhea Secondary to antibiotics Stool for C. difficile negative Continue probiotics Imodium as needed Continues to improve Hypomagnesemia Hypokalemia Hypophosphatemia Likely due to GI loses and lasix Replete electrolytes as needed Monitor CAD S/P CABG x4 Sinus node dysfunction with permanent pacemaker in place follows [facility] cardiology Continue ASA, Ranexa, metoprolol Prediabetes HbA1c 5.7 10/2020 H/O DVT DVT prophylaxis SQ Lovenox Code Status Full Code Disposition Expected discharge home when medically stable Likely discharge tomorrow Admission and Anticipated Discharge Date Admission Date: January 05, 2021 Subjective Patient is seen and examined at bedside Offers no complaints Doing well Dyspnea resolved Ambulating in hallways with no STROUD Denies chest pain, dysuria, hematuria, abdominal pain, dizziness Review of Systems Review of Systems: All systems reviewed & are unremarkable except as noted in HPI & below Physical Exam Physical Exam: Physical Exam: Vitals signs as noted above General Appearance:Moderately built and nourished, no apparent distress Head: normocephalic, Atraumatic Eyes: normal inspection, EOMI Neck: supple, Trachea midline Respiratory/Chest: Normal breath sounds, CTA Cardiovascular: S1, S2, No murmur Abdomen/GI:Soft, Non tender, Bowel sounds present Extremities/Musculoskelatal:normal inspection, no edema Neurologic/Psych:AAOX3, grossly no focal neurological deficits Skin: normal color, warm Results & Data Results & Data ([facility]) Vital Signs (Past 12 Hours) Vital Signs Temp Pulse Resp BP Pulse Ox 01/11/21 15:27 36.6 C 60 18 122/79 96 01/11/21 11:31 36.7 C 63 18 125/77 94 01/11/21 07:26 36.7 C 68 19 129/74 93 Laboratory Results Short CBC 01/11/21 Range/Units 06:30 WBC 9.90 (4.8-10.8) K/uL Hgb 11.6 L (14.0-18.0) g/dL Hct 32.6 L (42-52) % Plt Count 208 (130-400) K/uL BMP 01/11/21 06:30 Sodium 134 L Potassium 3.5 Chloride 101 Carbon Dioxide 29 BUN 15 Creatinine 1.02 Glucose 93 Calcium 9.2 (1) Sepsis Sepsis acute organ dysfunction status: unspecified Sepsis type: sepsis due to unspecified organism Qualified Code(s): A41.9 - Sepsis, unspecified organism
[2021-01-11] MEDS: ENOXAPARIN INJ 40 MG/0.4 ML SYR SQ SCH (21:51)
[2021-01-12 07:32] LABS: BUN Creatinine Ratio 11.6 (10-20); Calcium 8.9 mg/dl (8.5-10.1); Creatinine Clr Calc Pharmacy 75.2 ml/min; Est GFR (African American) 90.5; Est GFR (Non-African American) 78.1; Potassium 3.5 mmol/L (3.5-5.1)
[2021-01-12] MEDS: DOXYCYCLINE HYCLATE 100 MG CAP PO SCH (08:05)
[2021-01-12] MEDS: RANOLAZINE 500 MG ER TAB PO SCH (08:06)
[2021-01-12] MEDS: METOPROLOL SUCC 25MG EXT REL TAB PO SCH (08:06)
[2021-01-12] MEDS: CEROVITE ADV FORMULA TAB PO SCH (08:07)
[2021-01-12] MEDS: ASPIRIN 81 MG ECTAB PO SCH (08:08)
[2021-01-12] MEDS: LACTOBACILLUS ACIDOPHILUS 1 GM PACK PO SCH ×2 (08:08→12:03)
[2021-01-12] MEDS: cefTRIAXone SODIUM 2,000 MG in DEXTROSE 5% 50 ML IV SCH (08:09)
--- NOTE | 2021-01-12 12:31 | Hospitalist Progress Note ---
Date of Service January 12, 2021 Assessment & Plan (1) Sepsis: (2) Acidosis, lactic: (3) Complicated UTI (urinary tract infection): Patient is a 75 yr male with H/O CAD S/P CABG x4 in 2005, sinus node dysfunction status post pacemaker, HTN, prediabetes, history of DVT, thoracic ascending aortic aneurysm, BPH who presents to ED secondary to chills, UTI symptoms x3 days and recent prostate biopsy on 12/30/2020. Complicated UTI E. coli bacteremia:POA Lactic acidosis S/P Prostate biopsy by Dr. Schneider at [facility] on 12/30. (Was empirically was treated with IM gentamicin and oral ciprofloxacin) for elevated PSA -CTA DB:Moderate enlargement of the prostate. Minimal infiltration adjacent to the prostate and seminal vesicles is nonspecific and could be related to recent procedure or represent an infectious process. No fluid collection to suggest abscess or hematoma. Colonic diverticulosis without evidence for acute diverticulitis. No bowel obstruction. Blood Cx: 11/18: E. coli Urine culture E. coli Repeat blood cultures: No growth to date Empirically started on IV vancomycin, cefepime, Flagyl>> transitioned to IV Rocephin Received IV fluids Lactic acid levels normalized with IV fluids Appreciate ID Input Transition to p.o. antibiotics upon discharge Procalcitonin trended down Volume overload--Likely due to Aggressive IV fluids in setting of possible sepsis Possible Pneumonia Hypoxia due to B/L Pleural effusion Likely secondary to pulmonary edema, bilateral pleural effusion, atelectasis CXR:Mild interstitial pulmonary edema and small bilateral pleural effusions. Right greater than left bibasilar airspace opacities. This could be due to atelectasis or pneumonia. Covid screen negative Continue IV antibiotics as above>> transition to IV Rocephin, doxycycline ECHO unchanged from prior Received IV lasix Appreciate cardiology input Monitor renal function, electrolytes Weaned off of supplemental oxygen Monitor I's and O's, daily weight Volume status much improved IV diuretics discontinued Has follow-up with cardiology as outpatient Diarrhea Secondary to antibiotics Stool for C. difficile negative Continue probiotics Imodium as needed Resolved Hypomagnesemia Hypokalemia Hypophosphatemia Likely due to GI loses and lasix Replete electrolytes as needed Monitor CAD S/P CABG x4 Sinus node dysfunction with permanent pacemaker in place follows [facility] cardiology Continue ASA, Ranexa, metoprolol Prediabetes HbA1c 5.7 10/2020 H/O DVT DVT prophylaxis SQ Lovenox Code Status Full Code Disposition Plan to discharge home today Admission and Anticipated Discharge Date Admission Date: January 05, 2021 Subjective Patient is seen and examined at bedside Diarrhea resolved No new complaints Eager to get discharged Denies chest pain, Dyspnea, dysuria, hematuria, abdominal pain, dizziness Review of Systems Review of Systems: All systems reviewed & are unremarkable except as noted in HPI & below Physical Exam Physical Exam: Physical Exam: Vitals signs as noted above General Appearance:Moderately built and nourished, no apparent distress Head: normocephalic, Atraumatic Eyes: normal inspection, EOMI Neck: supple, Trachea midline Respiratory/Chest: Normal breath sounds, CTA Cardiovascular: S1, S2, No murmur Abdomen/GI:Soft, Non tender, Bowel sounds present Extremities/Musculoskelatal:normal inspection, no edema Neurologic/Psych:AAOX3, grossly no focal neurological deficits Skin: normal color, warm Results & Data Results & Data ([facility]) Vital Signs (Past 12 Hours) Vital Signs Temp Pulse Pulse Pulse Resp BP Pulse Ox 01/12/21 11:25 37.1 C 69 18 112/70 96 01/12/21 08:00 68 01/12/21 07:40 37.0 C 73 18 131/77 93 01/12/21 03:54 36.7 C 79 75 18 123/77 98 Laboratory Results [facility] 01/12/21 06:41 Sodium 134 L Potassium 3.5 Chloride 103 Carbon Dioxide 26 BUN 11 Creatinine 0.96 Glucose 95 Calcium 8.9 (1) Sepsis Sepsis acute organ dysfunction status: unspecified Sepsis type: sepsis due to unspecified organism Qualified Code(s): A41.9 - Sepsis, unspecified organism
--- NOTE | 2021-01-12 12:40 | Discharge Summary ---
Date of Service January 12, 2021 Admission HPI Per Admitting Provider This is a 75-year-old male who has significant past medical history of CAD status post CABG x4 in 2005, sinus node dysfunction status post pacemaker, HTN, prediabetes, history of DVT, thoracic ascending aortic aneurysm, BPH who presents to ED secondary to chills, UTI symptoms x3 days and recent prostate biopsy on 12/30/2020. Of significance patient underwent prostate biopsy by Dr. Schneider at [facility] on 12/30 secondary to elevated PSA of 9. Prior to biopsy he took preop ciprofloxacin and had IM gentamicin. He also finished course of Cipro postoperatively. Last dose of antibiotic was 3 days ago. Appr oximately 3 days ago he developed dysuria and increased frequency. He also admitted to chills. He woke up this morning and was shaking and overall felt ill so opted to present to ED. He denies any documented fever or sweats but overall was chilled this morning. He denies any lightheadedness, dizziness, chest pain, shortness breath, cough, URI symptoms, nausea, vomiting, abdominal pain, flank pain, hematuria, melena, hematochezia, increased urinary urgency. He did have mild hematuria postoperatively but this has since resolved. His appetite is otherwise been okay. He did not take his morning medications today. In ED patient did not meet SIRS or sepsis criteria although he was mildly tachycardic and he did have elevation of his lactic acid to 3.6. His urinalysis was consistent with UTI. CT abdomen pelvis revealed moderate prostamegaly without evidence of abscess or fluid collection. He received 2 L of IV fluid as well as IV cefepime. Admission Exam Per Admitting Provider Physical Exam Physical Exam: Constitutional: WD/WN, Male,vitals as above, NAD, sitting up in bed, pleasant, conversing easily Head: Normocephalic, Atraumatic Eyes: PERRL, conjunctivae normal, anicteric sclerae ENMT: external ear and nose normal, oropharynx normal Neck: trachea midline, no thyromegaly normal visual inspection Respiratory: normal respiratory effort, lungs clear to auscultation, no wheeze, rales, rhonchi. Normal insp/exp effort, no accessory muscle use Cardiovascular: RRR, no murmur, no edema Vessels: no JVD or carotid bruit Chest: Pacemaker LACW,normal inspection of chest Abdomen: normal bowel sounds, soft, nontender, no hepatosplenomegaly, no cva tenderness Musculoskeletal: no cyanosis or clubbing, extremities motor strength 5/5 Skin: no rashes, warm and dry normal turgor Neurologic: PERRL, EOMI, accommodation nl, no face palsy, no dysarthria CN's II-XI intact bilaterally and moves all extremities Psychiatric: A+Ox3, euthymic affect Lymphatic: no cervical or axillary lymphadenopathy : deferred Principal Diagnosis Complicated UTI E. coli bacteremia Possible Pneumonia Volume overload Hypomagnesemia Hypokalemia Hypophosphatemia Discharge Data Allergies Allergy/AdvReac Type Severity Reaction Status Date / Time [id number] Reductase AdvReac Intermediate MUSCLE Verified 01/05/21 11:29 Inhibitor ACHES Consultations 01/05/21 12:36 ED Decision to Admit Stat 01/07/21 09:02 Consult Infectious Diseases Routine 01/08/21 08:43 Consult Cardiology Routine Procedures Performed CTA DB:Moderate enlargement of the prostate. Minimal infiltration adjacent to the prostate and seminal vesicles is nonspecific and could be related to recent procedure or represent an infectious process. No fluid collection to suggest abscess or hematoma. Colonic diverticulosis without evidence for acute diverticulitis. No bowel obstruction. Ordered Studies 01/05/21 10:03 CT abd pelvis IV con only Stat Hospital Course (1) Sepsis: (2) Acidosis, lactic: (3) Complicated UTI (urinary tract infection): Patient is a 75 yr male with H/O CAD S/P CABG x4 in 2005, sinus node dysfunction status post pacemaker, HTN, prediabetes, history of DVT, thoracic ascending aortic aneurysm, BPH who presents to ED secondary to chills, UTI symptoms x3 days and recent prostate biopsy on 12/30/2020. Complicated UTI E. coli bacteremia:POA Lactic acidosis S/P Prostate biopsy by Dr. Schneider at [facility] on 12/30. (Was empirically was treated with IM gentamicin and oral ciprofloxacin) for elevated PSA -CTA DB:Moderate enlargement of the prostate. Minimal infiltration adjacent to the prostate and seminal vesicles is nonspecific and could be related to recent procedure or represent an infectious process. No fluid collection to suggest abscess or hematoma. Colonic diverticulosis without evidence for acute diverticulitis. No bowel obstruction. Blood Cx: 11/18: E. coli Urine culture E. coli Repeat blood cultures: No growth to date Empirically started on IV vancomycin, cefepime, Flagyl>> transitioned to IV Rocephin Received IV fluids Lactic acid levels normalized with IV fluids Appreciate ID Input Transition to p.o. antibiotics upon discharge Procalcitonin trended down Volume overload--Likely due to Aggressive IV fluids in setting of possible sepsis Possible Pneumonia Hypoxia due to B/L Pleural effusion Likely secondary to pulmonary edema, bilateral pleural effusion, atelectasis CXR:Mild interstitial pulmonary edema and small bilateral pleural effusions. Right greater than left bibasilar airspace opacities. This could be due to atelectasis or pneumonia. Covid screen negative Continue IV antibiotics as above>> transition to IV Rocephin, doxycycline ECHO unchanged from prior Received IV lasix Appreciate cardiology input Monitor renal function, electrolytes Weaned off of supplemental oxygen Monitor I's and O's, daily weight Volume status much improved IV diuretics discontinued Has follow-up with cardiology as outpatient Diarrhea Secondary to antibiotics Stool for C. difficile negative Continue probiotics Imodium as needed Resolved Hypomagnesemia Hypokalemia Hypophosphatemia Likely due to GI loses and lasix Replete electrolytes as needed Monitor CAD S/P CABG x4 Sinus node dysfunction with permanent pacemaker in place follows [facility] cardiology Continue ASA, Ranexa, metoprolol Prediabetes HbA1c 5.7 10/2020 H/O DVT DVT prophylaxis SQ Lovenox Code Status Full Code Disposition Plan to discharge home today Total Time Total Time Spent Total Time Spent (In Minutes): 44 minutes Total Time Includes: Examination of the Patient, Discharge Planning, Medication Reconciliation, Communication With Other Providers and Other Discharge Plan Discharge Items Patient Disposition: Home - Self-Care Reason For Visit: UTI Discharge Diagnosis: Complicated UTI E. coli bacteremia Possible Pneumonia Volume overload Hypomagnesemia Hypokalemia Hypophosphatemia Activity: Per Instructions section Exercise/Sports: Gradually increase as tolerated Non-emergency contact: Primary Care Provider Call non-emergency contact if: you have any medication questions, your symptoms worsen, your pain is not controlled, your pain is concerning for you and you have a fever Follow-up/Referrals: Lennox Schneider MD [Outside Practitioners] - (Date & Time 01/15/2021 1:00 PM Provider Lennox Schneider MD Department Urology Abdirizak Ortega Anitha, MD [Primary Care Provider] - (Date & Time 01/16/2021 9:00 AM Provider Celestina Lim MD Department General Internal Medicine [facility] ) Diet: Heart Healthy Addtl Attending Provider Instructions: Follow up with your PCP on 01/16/2021 9:00 AM Follow up with your Urologist on 01/15/2021 1:00 PM Follow-up with your upkeep worker as outpatient as advised. Complete the antibiotic course, Augmentin for 6 more days as prescribed. Seek immediate medical attention if your symptoms reoccur or worsen Pending Studies at Discharge: No Stand-Alone Forms: My [facility] CADsurf, Smoking Cessation Medications and DC Order Prescriptions: New Floranex 100 million cell Granules In Packet 1 g PO TIDM Qty: 30 RF: 0 amoxicillin-pot clavulanate [Augmentin] 875-125 mg tablet 1 tab PO BID Qty: 12 RF: 0 Continued metoprolol succinate 50 mg Tablet Extended Release 24 Hr 75 mg PO QAM RF: 0 Multivitamin 50 Plus Tablet 1 tab PO QAM RF: 0 ranolazine [Ranexa] 500 mg Tablet Extended Release 12 Hr 500 mg PO BID RF: 0 Glucosamine Chondroitin 550-30-1 mg Capsule 1 cap PO BID RF: 0 aspirin 81 mg Tablet,Delayed Release (Dr/Ec) 81 mg PO DAILY RF: 0 ibuprofen 200 mg Tablet 200 mg PO Q6H PRN (Reason: Pain) RF: 0 Prostagenix 3 tab PO DAILY RF: 0 Discharge Orders: Discharge Order (Routine); Ordered 01/12/21 Ordered By: Jeff Duarte Admission Data Admit Date/Time: 01/05/21 12:43 Attending Provider: Jeff Duarte Admit Provider: Germán Reynoso Primary Care Provider: Celestina Conley Other Providers: Germán Reynoso ; Yunior Vigil ; Hannah Burkett ; Eligio Polladr I. ; Loi Mistry II ; Nikole Ellis ; Giuliano Acharya ; Shade Almendarez Other Interventions: Discharge Summary Assessment (RN) Last Done: 01/12/21 12:48
== END 2021-01-12 14:59 | disposition home or self-care (01) | DRG 871 ==
LOC: ED 09:40 → SUATTDRO 12:43 → 2S 12:43